=== PATIENT | female | born 1970 | race Caucasian/White ===

== ENCOUNTER 2019-08-17 12:08 | Outpatient (CLI) | payer OTHER, SELFPAY ==
[2019-08-17 13:10] LABS: Abs Immature Grans 0.01 k/cumm (0.0-0.09); Absolute Basophil Count 0.01 k/cumm (0.0-0.2); Absolute Eosinophil Count 0.08 k/cumm (0.0-0.7); Absolute Lymphocyte Count 1.83 k/cumm (1.2-3.4); Absolute Monocyte Count 0.52 k/cumm (0.11-0.7); Absolute Neutrophil Count 3.95 k/cumm (1.2-6.7); Basophils % 0.2; Eosinophils % 1.3; HCT 35.8 % (36.0-46.0); HGB 11.7 g/dL (12.0-15.5); Immature Grans % 0.2; Lymphocytes % 28.6; Mean Corp. HGB Concentration 32.7 g/dL (32.0-36.0); Mean Corpuscular Hemoglobin 35.8 pg (27.0-33.0); Mean Corpuscular Volume 109.5 fL (80-95); Mean Platelet Volume 8.3 fL (8.0-11.0); Monocytes % 8.1; Neutrophils % 61.6; Platelet Count 360 x1000/uL (130-400); RBC 3.27 m/cumm (4.00-5.20); RBC Distribution Width 13.9 % (11.7-14.6)
[2019-08-17 13:26] LABS: Diff Comment RBC Morph Reviewed; Macrocytosis 2+
[2019-08-17 13:34] LABS: ALT 24 U/L (14-59); AST 20 U/L (15-37); Albumin 3.9 g/dL (3.4-5.0); Alkaline Phosphatase 76 U/L (46-116); Anion Gap 9.9 mmol/L (3-11); BUN 21 mg/dL (7-18); Bilirubin, Total 0.1 mg/dL (0.2-1.0); CO2 28.1 mmol/L (21.0-32.0); Calcium 9.2 mg/dL (8.5-10.1); Chloride 105 mmol/L (98-107); Estimated GFR 52.36 (mL/min/1.73m2); Glucose 95 mg/dL (74-106); LDH 166 U/L (81-234); Potassium 4.1 mmol/L (3.5-5.1); Sodium 143 mmol/L (136-145); Total Protein 7.1 g/dL (6.4-8.2)
[2019-08-20 11:22] LABS: IgA 107 mg/dL (85-499); IgG 899 mg/dL (610-1,616); IgM 48 mg/dL (35-242)
== END 2019-08-17 12:28 ==
PROVIDERS: Visit Provider Internal Medicine Hematology & Oncology
DX: C84.78 Anaplastic large cell lymphoma, ALK-negative, lymph nodes of multiple sites (principal)
CPT/HCPCS: 36415; 80053; 82784; 83615; 85025

== ENCOUNTER 2019-09-05 09:24 | Outpatient (CLI) | payer OTHER, SELFPAY ==
[2019-09-05 09:51] LABS: Absolute Basophil Count 0.02 k/cumm (0.0-0.2); Absolute Eosinophil Count 0.16 k/cumm (0.0-0.7); Absolute Lymphocyte Count 2.65 k/cumm (1.2-3.4); Absolute Monocyte Count 0.83 k/cumm (0.11-0.7); Absolute Neutrophil Count 3.63 k/cumm (1.2-6.7); Basophils % 0.3; Eosinophils % 2.2; HCT 35.6 % (36.0-46.0); HGB 11.8 g/dL (12.0-15.5); Lymphocytes % 36.4; Mean Corp. HGB Concentration 33.1 g/dL (32.0-36.0); Mean Corpuscular Hemoglobin 35.6 pg (27.0-33.0); Mean Corpuscular Volume 107.6 fL (80-95); Mean Platelet Volume 8.5 fL (8.0-11.0); Monocytes % 11.4; Neutrophils % 49.7; Platelet Count 275 x1000/uL (130-400); RBC 3.31 m/cumm (4.00-5.20); RBC Distribution Width 13.3 % (11.7-14.6); White Blood Cell Count 7.29 k/cumm (4.4-10.8)
[2019-09-05 10:01] LABS: ALT 23 U/L (14-59); AST 20 U/L (15-37); Albumin 3.7 g/dL (3.4-5.0); Alkaline Phosphatase 72 U/L (46-116); Anion Gap 7.2 mmol/L (3-11); BUN 26 mg/dL (7-18); Bilirubin, Total 0.2 mg/dL (0.2-1.0); CO2 28.8 mmol/L (21.0-32.0); CREATININE 1.08 mg/dL (0.55-1.02); Chloride 106 mmol/L (98-107); Estimated GFR 53.49 (mL/min/1.73m2); Glucose 68 mg/dL (74-106); LDH 176 U/L (81-234); Sodium 142 mmol/L (136-145); Total Protein 7.1 g/dL (6.4-8.2)
[2019-09-05 10:21] LABS: Diff Comment Diff Reviewed
[2019-09-05 10:22] LABS: Macrocytosis 2+
[2019-09-06 12:22] LABS: IgA 96 mg/dL (85-499); IgG 884 mg/dL (610-1,616); IgM 41 mg/dL (35-242)
== END 2019-09-05 09:44 ==
PROVIDERS: Referring Provider Internal Medicine Hematology & Oncology; Visit Provider Internal Medicine Hematology & Oncology
DX: C84.78 Anaplastic large cell lymphoma, ALK-negative, lymph nodes of multiple sites (principal)
CPT/HCPCS: 36415; 80053; 82784; 83615; 85025

== ENCOUNTER 2019-09-13 14:02 | Outpatient (CLI) | payer OTHER, SELFPAY ==
[2019-09-13 15:16] LABS: Bilirubin Negative (Negative); Blood Negative (Negative); Clarity Clear (Clear); Glucose Negative (Negative); Ketones Negative (Negative); Leukocyte Esterase Negative (Negative); Nitrite Negative (Negative); Urobilinogen 0.2 EU/dL (Up TO 0.2); pH 5.5 (5-8)
== END 2019-09-13 14:22 ==
PROVIDERS: Referring Provider Internal Medicine Hematology & Oncology; Visit Provider Internal Medicine Hematology & Oncology
DX: C84.40 Peripheral T-cell lymphoma, not elsewhere classified, unspecified site (principal)
CPT/HCPCS: 81003

== ENCOUNTER 2019-10-01 15:07 | Outpatient (CLI) | payer OTHER, SELFPAY ==
[2019-10-01 15:32] LABS: Abs Immature Grans 0.01 k/cumm (0.0-0.09); Absolute Basophil Count 0.02 k/cumm (0.0-0.2); Absolute Eosinophil Count 0.08 k/cumm (0.0-0.7); Absolute Lymphocyte Count 2.81 k/cumm (1.2-3.4); Absolute Monocyte Count 0.64 k/cumm (0.11-0.7); Absolute Neutrophil Count 3.66 k/cumm (1.2-6.7); Basophils % 0.3; Eosinophils % 1.1; HCT 29.4 % (36.0-46.0); HGB 9.7 g/dL (12.0-15.5); Immature Grans % 0.1 %; Lymphocytes % 38.9; Mean Corpuscular Hemoglobin 33.7 pg (27.0-33.0); Mean Corpuscular Volume 102.1 fL (80-95); Mean Platelet Volume 8.4 fL (8.0-11.0); Monocytes % 8.9; Neutrophils % 50.7; Platelet Count 334 x1000/uL (130-400); RBC 2.88 m/cumm (4.00-5.20); RBC Distribution Width 13.3 % (11.7-14.6); White Blood Cell Count 7.22 k/cumm (4.4-10.8)
[2019-10-01 16:13] LABS: ALT 32 U/L (14-59); AST 18 U/L (15-37); Albumin 3.2 g/dL (3.4-5.0); Alkaline Phosphatase 71 U/L (46-116); Anion Gap 10.2 mmol/L (3-11); BUN 17 mg/dL (7-18); Bilirubin, Total 0.5 mg/dL (0.2-1.0); CO2 27.8 mmol/L (21.0-32.0); CREATININE 0.99 mg/dL (0.55-1.02); Calcium 8.6 mg/dL (8.5-10.1); Chloride 102 mmol/L (98-107); Estimated GFR 59.14 (mL/min/1.73m2); Glucose 89 mg/dL (74-106); Potassium 3.2 mmol/L (3.5-5.1); Sodium 140 mmol/L (136-145); Total Protein 7.2 g/dL (6.4-8.2)
[2019-10-01 17:32] LABS: LDH 183 U/L (81-234); Magnesium 1.9 mg/dL (1.8-2.4)
[2019-10-03 10:24] LABS: IgA 308 mg/dL (85-499); IgG 1426 mg/dL (610-1,616); IgM 63 mg/dL (35-242)
== END 2019-10-01 15:27 ==
PROVIDERS: Visit Provider Internal Medicine Hematology & Oncology
DX: C84.78 Anaplastic large cell lymphoma, ALK-negative, lymph nodes of multiple sites (principal)
CPT/HCPCS: 36415; 80053; 82784; 83615; 83735; 85025

== ENCOUNTER 2019-10-04 09:38 | Outpatient (CLI) | payer OTHER, SELFPAY | END 2019-10-04 09:58 | PROVIDERS: PCP Student in an Organized Health Care Education/Training Program; Visit Provider Internal Medicine Hematology & Oncology | DX: Z92.21 Personal history of antineoplastic chemotherapy (principal); C84.78 Anaplastic large cell lymphoma, ALK-negative, lymph nodes of multiple sites | CPT/HCPCS: 93005; 93010 ==

== ENCOUNTER 2019-11-07 02:42 | Outpatient (CLI) | payer OTHER, SELFPAY | END 2019-11-07 03:02 | PROVIDERS: Referring Provider Internal Medicine Hematology & Oncology; Visit Provider Internal Medicine Hematology & Oncology | DX: C84.78 Anaplastic large cell lymphoma, ALK-negative, lymph nodes of multiple sites (principal); Z13.6 Encounter for screening for cardiovascular disorders | CPT/HCPCS: 93005; 93010 ==

== ENCOUNTER 2019-11-07 14:27 | Outpatient (CLI) | payer OTHER, SELFPAY ==
[2019-11-07 14:53] LABS: Abs Immature Grans 0.01 k/cumm (0.0-0.09); Absolute Basophil Count 0.05 k/cumm (0.0-0.2); Absolute Eosinophil Count 0.16 k/cumm (0.0-0.7); Absolute Lymphocyte Count 2.49 k/cumm (1.2-3.4); Absolute Monocyte Count 0.55 k/cumm (0.11-0.7); Absolute Neutrophil Count 2.85 k/cumm (1.2-6.7); Basophils % 0.8; Eosinophils % 2.6; HCT 29.9 % (36.0-46.0); HGB 9.2 g/dL (12.0-15.5); Immature Grans % 0.2 %; Lymphocytes % 40.8; Mean Corp. HGB Concentration 30.8 g/dL (32.0-36.0); Mean Corpuscular Hemoglobin 31.9 pg (27.0-33.0); Mean Corpuscular Volume 103.8 fL (80-95); Neutrophils % 46.6; Platelet Count 395 x1000/uL (130-400); RBC 2.88 m/cumm (4.00-5.20); RBC Distribution Width 17.5 % (11.7-14.6); White Blood Cell Count 6.11 k/cumm (4.4-10.8)
[2019-11-07 15:12] LABS: Anisocytosis 2+; Basophilic Stippling Present; Diff Comment RBC Morph Reviewed; Hypochromasia 1+; Macrocytosis 2+; Polychromasia Present
[2019-11-07 15:14] LABS: ALT 17 U/L (14-59); AST 17 U/L (15-37); Albumin 3.3 g/dL (3.4-5.0); Alkaline Phosphatase 74 U/L (46-116); Anion Gap 8.9 mmol/L (3-11); BUN 21 mg/dL (7-18); Bilirubin, Total 0.3 mg/dL (0.2-1.0); CO2 28.1 mmol/L (21.0-32.0); CREATININE 1.06 mg/dL (0.55-1.02); Calcium 8.6 mg/dL (8.5-10.1); Chloride 106 mmol/L (98-107); Estimated GFR 54.65 (mL/min/1.73m2); Glucose 98 mg/dL (74-106); Potassium 3.7 mmol/L (3.5-5.1); Sodium 143 mmol/L (136-145); Total Protein 7.7 g/dL (6.4-8.2)
== END 2019-11-07 14:47 ==
PROVIDERS: Referring Provider Internal Medicine Hematology & Oncology; Visit Provider Internal Medicine Hematology & Oncology
DX: C84.78 Anaplastic large cell lymphoma, ALK-negative, lymph nodes of multiple sites (principal)
CPT/HCPCS: 36415; 80053; 86850; 86900; 86901; 85025

== ENCOUNTER 2019-11-28 11:43 | Outpatient (CLI) | payer OTHER, SELFPAY ==
[2019-11-28 12:17] LABS: Abs Immature Grans 0.01 k/cumm (0.0-0.09); Absolute Basophil Count 0.03 k/cumm (0.0-0.2); Absolute Eosinophil Count 0.14 k/cumm (0.0-0.7); Absolute Lymphocyte Count 1.82 k/cumm (1.2-3.4); Absolute Monocyte Count 0.62 k/cumm (0.11-0.7); Absolute Neutrophil Count 3.03 k/cumm (1.2-6.7); Basophils % 0.5; Eosinophils % 2.5; HCT 36.6 % (36.0-46.0); HGB 11.7 g/dL (12.0-15.5); Immature Grans % 0.2 %; Lymphocytes % 32.2; Mean Corpuscular Hemoglobin 33.5 pg (27.0-33.0); Mean Corpuscular Volume 104.9 fL (80-95); Mean Platelet Volume 8.1 fL (8.0-11.0); Neutrophils % 53.6; Platelet Count 376 x1000/uL (130-400); RBC 3.49 m/cumm (4.00-5.20); RBC Distribution Width 17.8 % (11.7-14.6); White Blood Cell Count 5.65 k/cumm (4.4-10.8)
[2019-11-28 12:39] LABS: ALT 25 U/L (14-59); AST 20 U/L (15-37); Albumin 3.8 g/dL (3.4-5.0); Alkaline Phosphatase 74 U/L (46-116); Anion Gap 5.9 mmol/L (3-11); BUN 22 mg/dL (7-18); Bilirubin, Total 0.4 mg/dL (0.2-1.0); CO2 29.1 mmol/L (21.0-32.0); CREATININE 0.98 mg/dL (0.55-1.02); Calcium 9.1 mg/dL (8.5-10.1); Chloride 104 mmol/L (98-107); Estimated GFR 59.83 (mL/min/1.73m2); Glucose 97 mg/dL (74-106); Magnesium 2.2 mg/dL (1.8-2.4); Sodium 139 mmol/L (136-145); Total Protein 7.9 g/dL (6.4-8.2)
== END 2019-11-28 12:03 ==
PROVIDERS: Visit Provider Internal Medicine Hematology & Oncology
DX: C84.78 Anaplastic large cell lymphoma, ALK-negative, lymph nodes of multiple sites (principal)
CPT/HCPCS: 36415; 80053; 83735; 85025

== ENCOUNTER 2019-12-03 02:05 | Outpatient (CLI) | payer OTHER, SELFPAY | END 2019-12-03 02:25 | PROVIDERS: Visit Provider Internal Medicine Hematology & Oncology | DX: C84.78 Anaplastic large cell lymphoma, ALK-negative, lymph nodes of multiple sites (principal); Z13.6 Encounter for screening for cardiovascular disorders; R94.31 Abnormal electrocardiogram [ECG] [EKG] | CPT/HCPCS: 93005; 93010 ==

== ENCOUNTER 2019-12-19 02:07 | Outpatient (CLI) | payer OTHER, SELFPAY ==
[2019-12-19 10:28] LABS: Absolute Basophil Count 0.03 k/cumm (0.0-0.2); Absolute Eosinophil Count 0.19 k/cumm (0.0-0.7); Absolute Monocyte Count 0.57 k/cumm (0.11-0.7); Absolute Neutrophil Count 2.92 k/cumm (1.2-6.7); Basophils % 0.5; Eosinophils % 3.4; HCT 37.7 % (36.0-46.0); HGB 12.2 g/dL (12.0-15.5); Lymphocytes % 32.7; Mean Corp. HGB Concentration 32.4 g/dL (32.0-36.0); Mean Corpuscular Hemoglobin 34.2 pg (27.0-33.0); Mean Corpuscular Volume 105.6 fL (80-95); Mean Platelet Volume 8.1 fL (8.0-11.0); Monocytes % 10.3; Neutrophils % 53.1; Platelet Count 297 x1000/uL (130-400); RBC 3.57 m/cumm (4.00-5.20); RBC Distribution Width 16.5 % (11.7-14.6); White Blood Cell Count 5.51 k/cumm (4.4-10.8)
[2019-12-19 10:38] LABS: ALT 27 U/L (14-59); AST 19 U/L (15-37); Albumin 3.5 g/dL (3.4-5.0); Alkaline Phosphatase 79 U/L (46-116); Anion Gap 5.4 mmol/L (3-11); BUN 19 mg/dL (7-18); Bilirubin, Total 0.2 mg/dL (0.2-1.0); CO2 29.6 mmol/L (21.0-32.0); Chloride 106 mmol/L (98-107); Estimated GFR 58.45 (mL/min/1.73m2); Glucose 57 mg/dL (74-106); LDH 164 U/L (81-234); Magnesium 1.9 mg/dL (1.8-2.4); Sodium 141 mmol/L (136-145); Total Protein 7.4 g/dL (6.4-8.2)
[2019-12-20 10:55] LABS: IgA 224 mg/dL (85-499); IgG 1248 mg/dL (610-1,616); IgM 91 mg/dL (35-242)
== END 2019-12-19 02:27 ==
PROVIDERS: Visit Provider Internal Medicine Hematology & Oncology
DX: C84.78 Anaplastic large cell lymphoma, ALK-negative, lymph nodes of multiple sites (principal); R94.31 Abnormal electrocardiogram [ECG] [EKG]; R00.1 Bradycardia, unspecified
CPT/HCPCS: 36415; 80053; 82784; 83615; 83735; 85025; 93005; 93010

== ENCOUNTER 2020-01-07 01:47 | Outpatient (CLI) | payer OTHER, SELFPAY ==
[2020-01-07] MEDS: Omnipaque 350 MG/ML 100 ML BTL IJ (09:55)
[2020-01-07] MEDS: Omnipaque 350 MG/ML 50 ML BTL PO (09:56)
[2020-01-07] MEDS: Normal Saline - Diluent 50 ML VIAL IV (09:56)
[2020-01-07] MEDS: Breeza Beverage 473 ML BTL PO (09:58)
--- NOTE | 2020-01-07 10:00 | DI.CT_ITS ---
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 COMPARISON: No exams were available for comparison FINDINGS: Neck CT: There is no evidence of adenopathy. The parotid, submandibular and thyroid glands are unre markable. There is no significant vascular stenosis or atherosclerotic plaque. The orbits are unrem arkable. There are degenerative disc changes at C5-6 and C6-7. Chest CT: A port is seen over the left upper chest. The heart size is normal. The pulmonary arterie s are well opacified with IV contrast and no emboli are seen. There is no infiltrate, pleural or per icardial effusion. There is mild apical scarring and paraseptal emphysematous changes. There is no evidence of axillary, hilar or mediastinal adenopathy. Surgical clips are seen in the left axilla. Abdomen and pelvic CT: The liver, spleen, gallbladder, pancreas, kidneys and adrenals are unremarkabl e. There is calcification in the aorta which is normal in diameter. There the uterus, bladder and s mall bowel are unremarkable. There is increased stool in the colon. There is a small lucency in the left ilium, of uncertain significance. There are degenerative disc changes at L5-S1. No evidence o f adenopathy in the abdomen or pelvis. IMPRESSION: No evidence adenopathy, mass or other acute abnormality in the neck, chest, abdomen or pelvis.
== END 2020-01-07 02:07 ==
PROVIDERS: Visit Provider Internal Medicine Hematology & Oncology
DX: C84.78 Anaplastic large cell lymphoma, ALK-negative, lymph nodes of multiple sites (principal); Z12.89 Encounter for screening for malignant neoplasm of other sites
CPT/HCPCS: 70491; 74177; 71260; J3490; Q9967

== ENCOUNTER 2020-01-07 02:30 | Outpatient (RCR) | payer OTHER, SELFPAY ==
[2020-01-07 08:35] LABS: Absolute Basophil Count 0.02 k/cumm (0.0-0.2); Absolute Eosinophil Count 0.23 k/cumm (0.0-0.7); Absolute Monocyte Count 0.66 k/cumm (0.11-0.7); Absolute Neutrophil Count 1.83 k/cumm (1.2-6.7); Basophils % 0.4; Eosinophils % 4.6; HCT 36.5 % (36.0-46.0); HGB 11.9 g/dL (12.0-15.5); Lymphocytes % 45.6; Mean Corp. HGB Concentration 32.6 g/dL (32.0-36.0); Mean Corpuscular Hemoglobin 34.5 pg (27.0-33.0); Mean Corpuscular Volume 105.8 fL (80-95); Mean Platelet Volume 8.6 fL (8.0-11.0); Monocytes % 13.1; Neutrophils % 36.3; Platelet Count 293 x1000/uL (130-400); RBC 3.45 m/cumm (4.00-5.20); RBC Distribution Width 14.9 % (11.7-14.6); White Blood Cell Count 5.04 k/cumm (4.4-10.8)
[2020-01-07] MEDS: Normal Saline Flush 10 ML SYR IVP (08:37)
[2020-01-07] MEDS: Heparin 500 UNITS/5 ML SYRINGE IV (08:38)
[2020-01-07 08:52] LABS: ALT 30 U/L (14-59); AST 21 U/L (15-37); Albumin 3.7 g/dL (3.4-5.0); Alkaline Phosphatase 78 U/L (46-116); Anion Gap 5.8 mmol/L (3-11); BUN 19 mg/dL (7-18); Bilirubin, Total 0.3 mg/dL (0.2-1.0); CO2 29.2 mmol/L (21.0-32.0); CREATININE 1.09 mg/dL (0.55-1.02); Calcium 8.9 mg/dL (8.5-10.1); Chloride 106 mmol/L (98-107); Estimated GFR 52.92 (mL/min/1.73m2); Glucose 95 mg/dL (74-106); LDH 165 U/L (81-234); Potassium 4.1 mmol/L (3.5-5.1); Sodium 141 mmol/L (136-145); Total Protein 7.5 g/dL (6.4-8.2)
[2020-01-09 13:23] LABS: CMV DNA Detect/Quant, P Undetected IU/mL (Undetected)
[2020-01-10 11:29] LABS: IgA 209 mg/dL (85-499); IgG 1138 mg/dL (610-1,616); IgM 86 mg/dL (35-242)
== END 2020-01-24 23:59 | disposition home or self-care (01) ==
LOC: INF 02:30
PROVIDERS: Visit Provider Internal Medicine Hematology & Oncology
DX: C84.78 Anaplastic large cell lymphoma, ALK-negative, lymph nodes of multiple sites (principal); Z45.2 Encounter for adjustment and management of vascular access device
CPT/HCPCS: 36591; 80053; 82784; 83615; 85025; 87497

== ENCOUNTER 2020-01-07 02:47 | Outpatient (CLI) | payer OTHER, SELFPAY | END 2020-01-07 03:07 | PROVIDERS: Referring Provider Internal Medicine Hematology & Oncology; Visit Provider Internal Medicine Hematology & Oncology | DX: C84.78 Anaplastic large cell lymphoma, ALK-negative, lymph nodes of multiple sites (principal); Z92.21 Personal history of antineoplastic chemotherapy; R94.31 Abnormal electrocardiogram [ECG] [EKG]; I25.2 Old myocardial infarction | CPT/HCPCS: 93005; 93010 ==

== ENCOUNTER → 2020-02-04 02:23 | Outpatient (CLI) | payer OTHER, SELFPAY | PROVIDERS: Visit Provider Internal Medicine Hematology & Oncology | DX: C84.40 Peripheral T-cell lymphoma, not elsewhere classified, unspecified site (principal); R94.31 Abnormal electrocardiogram [ECG] [EKG]; I25.2 Old myocardial infarction | CPT/HCPCS: 93005; 93010 ==

== ENCOUNTER 2020-02-20 01:46 | Outpatient (RCR) | payer OTHER, SELFPAY ==
[2020-02-04 13:15] LABS: Absolute Basophil Count 0.05 k/cumm (0.0-0.2); Absolute Lymphocyte Count 2.33 k/cumm (1.2-3.4); Absolute Monocyte Count 0.42 k/cumm (0.11-0.7); Absolute Neutrophil Count 2.83 k/cumm (1.2-6.7); Basophils % 0.9; Eosinophils % 1.7; HCT 35.8 % (36.0-46.0); HGB 12.3 g/dL (12.0-15.5); Lymphocytes % 40.7; Mean Corp. HGB Concentration 34.4 g/dL (32.0-36.0); Mean Corpuscular Hemoglobin 35.7 pg (27.0-33.0); Mean Corpuscular Volume 103.8 fL (80-95); Mean Platelet Volume 8.4 fL (8.0-11.0); Monocytes % 7.3; Neutrophils % 49.4; Platelet Count 302 x1000/uL (130-400); RBC 3.45 m/cumm (4.00-5.20); RBC Distribution Width 13.8 % (11.7-14.6); White Blood Cell Count 5.73 k/cumm (4.4-10.8)
[2020-02-04] MEDS: Normal Saline Flush 10 ML SYR IVP (13:23)
[2020-02-04 13:30] LABS: ALT 37 U/L (14-59); AST 24 U/L (15-37); Albumin 3.7 g/dL (3.4-5.0); Alkaline Phosphatase 73 U/L (46-116); Anion Gap 6.5 mmol/L (3-11); BUN 21 mg/dL (7-18); Bilirubin, Total 0.2 mg/dL (0.2-1.0); CO2 26.5 mmol/L (21.0-32.0); Chloride 102 mmol/L (98-107); Estimated GFR 58.45 (mL/min/1.73m2); Glucose 125 mg/dL (74-106); LDH 165 U/L (81-234); Potassium 4.3 mmol/L (3.5-5.1); Sodium 135 mmol/L (136-145); Total Protein 7.3 g/dL (6.4-8.2)
[2020-02-04 13:45] LABS: Calcium 9.2 mg/dL (8.5-10.1)
== END 2020-02-24 23:59 | disposition home or self-care (01) ==
LOC: INF 01:46
PROVIDERS: Visit Provider Internal Medicine Hematology & Oncology
DX: C84.78 Anaplastic large cell lymphoma, ALK-negative, lymph nodes of multiple sites (principal); Z45.2 Encounter for adjustment and management of vascular access device
CPT/HCPCS: 36415; 36591; 80053; 96523; 83615; 85025

== ENCOUNTER 2020-02-20 02:58 | Outpatient (CLI) | payer OTHER, SELFPAY ==
[2020-02-20 12:28] LABS: Absolute Basophil Count 0.02 k/cumm (0.0-0.2); Absolute Eosinophil Count 0.18 k/cumm (0.0-0.7); Absolute Monocyte Count 0.47 k/cumm (0.11-0.7); Absolute Neutrophil Count 3.37 k/cumm (1.2-6.7); Basophils % 0.3; Eosinophils % 2.8; HCT 36.8 % (36.0-46.0); HGB 12.4 g/dL (12.0-15.5); Lymphocytes % 38.2; Mean Corp. HGB Concentration 33.7 g/dL (32.0-36.0); Mean Corpuscular Hemoglobin 35.3 pg (27.0-33.0); Mean Corpuscular Volume 104.8 fL (80-95); Mean Platelet Volume 8.1 fL (8.0-11.0); Monocytes % 7.2; Neutrophils % 51.5; Platelet Count 286 x1000/uL (130-400); RBC 3.51 m/cumm (4.00-5.20); RBC Distribution Width 14.1 % (11.7-14.6); White Blood Cell Count 6.54 k/cumm (4.4-10.8)
[2020-02-20 12:40] LABS: ALT 31 U/L (14-59); AST 19 U/L (15-37); Albumin 3.7 g/dL (3.4-5.0); Alkaline Phosphatase 77 U/L (46-116); Anion Gap 5.8 mmol/L (3-11); BUN 27 mg/dL (7-18); Bilirubin, Total 0.3 mg/dL (0.2-1.0); CO2 29.2 mmol/L (21.0-32.0); CREATININE 1.04 mg/dL (0.55-1.02); Calcium 8.9 mg/dL (8.5-10.1); Chloride 104 mmol/L (98-107); Estimated GFR 55.65 (mL/min/1.73m2); Glucose 92 mg/dL (74-106); LDH 176 U/L (81-234); Magnesium 2.1 mg/dL (1.8-2.4); Potassium 4.2 mmol/L (3.5-5.1); Sodium 139 mmol/L (136-145); Total Protein 7.5 g/dL (6.4-8.2)
[2020-02-21 09:16] LABS: IgA 194 mg/dL (85-499); IgG 1127 mg/dL (610-1,616); IgM 73 mg/dL (35-242)
[2020-02-22 19:07] LABS: CMV DNA Detect/Quant, P Undetected IU/mL (Undetected)
== END 2020-02-20 03:18 ==
PROVIDERS: Visit Provider Internal Medicine Hematology & Oncology
DX: C84.78 Anaplastic large cell lymphoma, ALK-negative, lymph nodes of multiple sites (principal); R94.31 Abnormal electrocardiogram [ECG] [EKG]; I25.2 Old myocardial infarction; C84.40 Peripheral T-cell lymphoma, not elsewhere classified, unspecified site
CPT/HCPCS: 36415; 80053; 82784; 83615; 83735; 85025; 87497; 93005; 93010

== ENCOUNTER 2020-03-13 05:08 | Outpatient (CLI) | payer OTHER, SELFPAY | END 2020-03-13 05:28 | PROVIDERS: Visit Provider Internal Medicine Hematology & Oncology | DX: R94.31 Abnormal electrocardiogram [ECG] [EKG] (principal); C84.78 Anaplastic large cell lymphoma, ALK-negative, lymph nodes of multiple sites | CPT/HCPCS: 93005; 93010 ==

== ENCOUNTER 2020-03-13 09:16 | Outpatient (RCR) | payer OTHER, SELFPAY ==
[2020-03-13 10:09] LABS: Abs Immature Grans 0.01 k/cumm (0.0-0.09); Absolute Basophil Count 0.03 k/cumm (0.0-0.2); Absolute Eosinophil Count 0.19 k/cumm (0.0-0.7); Absolute Lymphocyte Count 2.19 k/cumm (1.2-3.4); Absolute Monocyte Count 0.83 k/cumm (0.11-0.7); Absolute Neutrophil Count 6.84 k/cumm (1.2-6.7); Basophils % 0.3; Eosinophils % 1.9; HCT 35.5 % (36.0-46.0); HGB 12.1 g/dL (12.0-15.5); Immature Grans % 0.1 %; Lymphocytes % 21.7; Mean Corp. HGB Concentration 34.1 g/dL (32.0-36.0); Mean Corpuscular Volume 105.7 fL (80-95); Mean Platelet Volume 8.1 fL (8.0-11.0); Monocytes % 8.2; Neutrophils % 67.8; Platelet Count 309 x1000/uL (130-400); RBC 3.36 m/cumm (4.00-5.20); White Blood Cell Count 10.09 k/cumm (4.4-10.8)
[2020-03-13 10:27] LABS: ALT 27 U/L (14-59); AST 23 U/L (15-37); Albumin 3.9 g/dL (3.4-5.0); Alkaline Phosphatase 87 U/L (46-116); Anion Gap 8.1 mmol/L (3-11); BUN 24 mg/dL (7-18); Bilirubin, Total 0.4 mg/dL (0.2-1.0); CO2 26.9 mmol/L (21.0-32.0); Calcium 8.9 mg/dL (8.5-10.1); Chloride 102 mmol/L (98-107); Estimated GFR 58.22 (mL/min/1.73m2); Glucose 103 mg/dL (74-106); LDH 188 U/L (81-234); Potassium 4.2 mmol/L (3.5-5.1); Sodium 137 mmol/L (136-145); Total Protein 7.5 g/dL (6.4-8.2)
[2020-03-13 10:30] LABS: Anisocytosis 1+; Diff Comment RBC Morph Reviewed; Macrocytosis 1+
[2020-03-13] MEDS: Normal Saline Flush 10 ML SYR IVP (10:39)
[2020-03-13] MEDS: Heparin 500 UNITS/5 ML SYRINGE IVP (10:39)
== END 2020-03-25 23:59 | disposition home or self-care (01) ==
LOC: INF 09:16
PROVIDERS: Visit Provider Internal Medicine Hematology & Oncology
DX: C84.78 Anaplastic large cell lymphoma, ALK-negative, lymph nodes of multiple sites (principal); Z45.2 Encounter for adjustment and management of vascular access device
CPT/HCPCS: 36591; 80053; 83615; 85025

== ENCOUNTER 2020-04-02 01:56 | Outpatient (CLI) | payer OTHER, SELFPAY ==
--- NOTE | 2020-04-02 08:00 | DI.MAMMO_ITS ---
EXAM: MAMMO SCREENING CLINICAL HISTORY: screening, Z12.39 TECHNIQUE: Mammograms were interpreted according to the usual protocol including computer analysis w [employer] CAD system, tomosynthesis and C-view imaging. COMPARISON: FINDINGS: The breasts are heterogeneously dense. No dominant mass or clumped microcalcification is identified either breast. Current examination is compared with previous examinations including January 2017 and the re is question of increased prominence of a medial retroareolar area nodularity seen in the right nichole ast in comparison with prior studies. No other significant change seen. Additional mammographic vie ws of the right breast recommended to include CC spot compression view. IMPRESSION: Additional mammographic views of the right breast requested as described above. Ultrasound should pr obably be obtained as well. BI-RADS Category 0 - Assessment Incomplete: Need additional imaging evaluation Breast Density - Category C - Heterogeneously dense
== END 2020-04-02 02:16 ==
PROVIDERS: PCP Nurse Practitioner Adult Health; Visit Provider Nurse Practitioner Adult Health
DX: Z12.31 Encounter for screening mammogram for malignant neoplasm of breast (principal); R92.8 Other abnormal and inconclusive findings on diagnostic imaging of breast
CPT/HCPCS: 77063; 77067

== ENCOUNTER → 2020-04-02 12:14 | Outpatient (CLI) | payer OTHER, SELFPAY ==
--- NOTE | 2020-04-02 12:15 | RT.EKG_ITS ---
APPROVED REPORT Exam: Resting ECG Patient Location: O HR:54 bpm ECG Measurements Heart Rate 54 AXIS NV 211 P 65 QRSd 95 QRS -64 QT 399 T 29 QTc 378 <Conclusion> Slow sinus arrhythmia...V-rate 45- 63, mean< 60 Prolonged NV interval...NV >210, V-rate 50- 90 Left anterior fascicular block...axis(240,-40), init forces inf Anterior infarct, old...Q >40mS, abnormal ST-T, V2-V5
== END ==
PROVIDERS: PCP Nurse Practitioner Adult Health; Visit Provider Nurse Practitioner Adult Health
DX: C84.78 Anaplastic large cell lymphoma, ALK-negative, lymph nodes of multiple sites (principal); R94.31 Abnormal electrocardiogram [ECG] [EKG]; I25.2 Old myocardial infarction
CPT/HCPCS: 93005; 93010

== ENCOUNTER 2020-04-23 02:40 | Outpatient (RCR) | payer OTHER, SELFPAY ==
[2020-04-02] MEDS: Heparin 500 UNITS/5 ML SYRINGE IV (12:10)
[2020-04-02] MEDS: Normal Saline Flush 10 ML SYR IVP (12:10)
[2020-04-02 12:15] LABS: Abs Immature Grans 0.01 k/cumm (0.0-0.09); Absolute Basophil Count 0.02 k/cumm (0.0-0.2); Absolute Eosinophil Count 0.18 k/cumm (0.0-0.7); Absolute Lymphocyte Count 1.82 k/cumm (1.2-3.4); Absolute Monocyte Count 0.66 k/cumm (0.11-0.7); Absolute Neutrophil Count 5.08 k/cumm (1.2-6.7); Basophils % 0.3; Eosinophils % 2.3; HCT 36.9 % (36.0-46.0); HGB 12.2 g/dL (12.0-15.5); Immature Grans % 0.1 %; Lymphocytes % 23.4; Mean Corp. HGB Concentration 33.1 g/dL (32.0-36.0); Mean Corpuscular Hemoglobin 35.3 pg (27.0-33.0); Mean Corpuscular Volume 106.6 fL (80-95); Mean Platelet Volume 8.2 fL (8.0-11.0); Monocytes % 8.5; Neutrophils % 65.4; Platelet Count 315 x1000/uL (130-400); RBC 3.46 m/cumm (4.00-5.20); RBC Distribution Width 13.2 % (11.7-14.6); White Blood Cell Count 7.77 k/cumm (4.4-10.8)
[2020-04-02 12:30] LABS: Anisocytosis 1+; Diff Comment RBC Morph Reviewed; Macrocytosis 2+
[2020-04-02 12:33] LABS: ALT 24 U/L (14-59); AST 19 U/L (15-37); Albumin 3.7 g/dL (3.4-5.0); Alkaline Phosphatase 90 U/L (46-116); Anion Gap 8.3 mmol/L (3-11); BUN 24 mg/dL (7-18); Bilirubin, Total 0.3 mg/dL (0.2-1.0); CO2 25.7 mmol/L (21.0-32.0); CREATININE 0.91 mg/dL (0.55-1.02); Calcium 8.6 mg/dL (8.5-10.1); Chloride 104 mmol/L (98-107); Glucose 78 mg/dL (74-106); LDH 161 U/L (81-234); Potassium 4.6 mmol/L (3.5-5.1); Sodium 138 mmol/L (136-145); Total Protein 7.3 g/dL (6.4-8.2)
[2020-04-23] MEDS: Normal Saline Flush 10 ML SYR IVP (09:39)
[2020-04-23 09:40] LABS: Abs Immature Grans 0.02 10^3/uL (0.0-0.06); Absolute Basophil Count 0.05 10^3/uL (0.0-0.2); Absolute Eosinophil Count 0.07 10^3/uL (0.0-0.7); Absolute Lymphocyte Count 2.72 10^3/uL (1.2-3.4); Absolute Monocyte Count 0.68 10^3/uL (0.1-0.8); Absolute Neutrophil Count 4.04 10^3/uL (1.2-6.7); Basophils % 0.7; Eosinophils % 0.9; HCT 39.3 % (36.0-46.0); HGB 13.1 g/dL (11.2-15.7); Immature Grans % 0.3; Lymphocytes % 35.9; MCH 35.1 pg (27.0-33.0); MCHC 33.3 % (32.0-36.0); MCV 105.4 fL (80-95); MPV 8.7 fL (8.0-11.0); Neutrophils % 53.2; Platelet Count 358 10^3/uL (130-400); RBC 3.73 10^6/uL (3.93-5.22); RDW 12.3 % (11.7-14.6); RDW-SD 48.2 fL; WBC 7.58 10^3/uL (4.4-10.8)
[2020-04-23] MEDS: Heparin 500 UNITS/5 ML SYRINGE IV (09:40)
[2020-04-23 09:57] LABS: ALT 22 U/L (14-59); Alkaline Phosphatase 81 U/L (46-116); Anion Gap 9.4 mmol/L (3-11); BUN 20 mg/dL (7-18); Bilirubin, Total 0.3 mg/dL (0.2-1.0); CO2 27.6 mmol/L (21.0-32.0); CREATININE 0.92 mg/dL (0.55-1.02); Calcium 9.7 mg/dL (8.5-10.1); Chloride 101 mmol/L (98-107); Glucose 133 mg/dL (74-106); LDH 168 U/L (81-234); Sodium 138 mmol/L (136-145); Total Protein 8.1 g/dL (6.4-8.2)
[2020-04-23 10:09] LABS: AST 16 U/L (15-37)
[2020-04-23 10:30] LABS: Anisocytosis 1+; Diff Comment RBC Morph Reviewed; Macrocytosis 1+
== END 2020-04-25 23:59 | disposition home or self-care (01) ==
LOC: INF 02:40
PROVIDERS: PCP Nurse Practitioner Adult Health; Visit Provider Internal Medicine Hematology & Oncology
DX: C84.78 Anaplastic large cell lymphoma, ALK-negative, lymph nodes of multiple sites (principal); Z45.2 Encounter for adjustment and management of vascular access device
CPT/HCPCS: 36591; 80053; 83615; 85025

== ENCOUNTER 2020-04-23 08:45 | Outpatient (CLI) | payer OTHER, SELFPAY ==
--- NOTE | 2020-04-23 08:45 | RT.EKG_ITS ---
APPROVED REPORT Exam: Resting ECG Patient Location: O HR:56 bpm ECG Measurements Heart Rate [address] 191 P 67 QRSd 107 QRS -57 QT 440 T 55 QTc 427 <Conclusion> Bradycardia with irregular rate...V-rate 49- 72, mean < 60 Left anterior fascicular block...axis(240,-40), init forces inf Anterior infarct, old...Q >40mS, abnormal ST-T, V2-V5
== END 2020-04-23 09:05 ==
PROVIDERS: PCP Nurse Practitioner Adult Health; Visit Provider Internal Medicine Hematology & Oncology
DX: R00.1 Bradycardia, unspecified (principal); R94.31 Abnormal electrocardiogram [ECG] [EKG]; I25.2 Old myocardial infarction; Z01.810 Encounter for preprocedural cardiovascular examination
CPT/HCPCS: 93005; 93010

== ENCOUNTER 2020-04-25 08:57 | Outpatient (CLI) | payer OTHER, SELFPAY ==
[2020-04-27 04:20] LABS: COVID-19 RT-PCR Result NEGATIVE (Negative)
== END 2020-04-25 09:17 ==
PROVIDERS: PCP Nurse Practitioner Adult Health; Visit Provider Nurse Practitioner Family
DX: Z11.59 Encounter for screening for other viral diseases (principal); Z01.818 Encounter for other preprocedural examination
CPT/HCPCS: U0003

== ENCOUNTER 2020-04-30 10:47 | Outpatient (REF) | payer OTHER, SELFPAY ==
--- NOTE | 2020-04-30 10:00 | PAPFT_PTH ---
PATIENT: Ava Mares LOC: [facility] U#:[id number] AGE/SX: 50/F ROOM: RE04/30/[address]: Saritha Wylie APRN : 1970 BED: DIS: 04/30/2020 SPEC #: [id number] RECD: 05/01/20 12:49 STATUS: FELY REAnahi #: [id number] CLARKE: 04/30/20 10:[address]: Saritha Wylie DEPT: ON LICENSE OF [facility] Cytology RECD BY: Xochitl Amato Tissues: 1 - CX/ENDOCX FOR PAP SMEARS Procedures: PAP THIN PREP/UVM Screening HPV DNA PROBE Comments: [id number]
== END 2020-04-30 11:07 ==
LOC: LBN 10:47
PROVIDERS: PCP Nurse Practitioner Adult Health; Referring Provider Nurse Practitioner Adult Health; Visit Provider Nurse Practitioner Adult Health
DX: Z12.4 Encounter for screening for malignant neoplasm of cervix (principal); Z11.51 Encounter for screening for human papillomavirus (HPV); R87.612 Low grade squamous intraepithelial lesion on cytologic smear of cervix (LGSIL)
CPT/HCPCS: 88142; 87624

== ENCOUNTER 2020-05-07 02:08 | Outpatient (CLI) | payer OTHER, SELFPAY ==
--- NOTE | 2020-05-07 | DI.US_ITS ---
EXAM: MG MAMMO SCREEN CALL BACK UNI and U/S breast RT limited CLINICAL HISTORY: F/U MAMMO, ? INCREASED PROMINENCE MEDIAL RETROAREOLAR NODULARITY RT. TECHNIQUE: Craniocaudal and mediolateral oblique Full Field Digital Mammography views of the right b reast with Computer Aided Diagnosis followed by Tomosynthesis and right breast ultrasound. COMPARISON: Priors available for comparison. FINDINGS: Mammography/Tomosynthesis: Masses/Architectural Distortion: None seen. Microcalcifictions: No suspicious pleomorphic-type are seen. Skin Thickening/Nipple Retraction: None. Right breast US: Echotexture: Normal appearance of the glandular tissue. Shadowing: No suspicious foci. Cyst: None. Solid lesions: None seen. Ductal dilation: None. IMPRESSION: 1. No evidence of malignancy is noted. 2. Unless there is more urgent need, follow-up screening mammography is recommended, as per [employer] guidelines. 3. The findings were discussed with the patient on the date of the examination. BI-RADS Category 1 - Negative Breast Density - Category C - Heterogeneously dense The mammogram demonstrates the patient's breast tissue is dense. Dense breast tissue is very common a nd is not abnormal but dense breast tissue can make it harder to find cancer on a mammogram. Also, de nse breast tissue may increase their breast cancer risk. This information about the result of the [facility] mogram report was provided to the patient to raise their awareness. Use this report when you speak wi th the patient about their risks for breast cancer, which includes their family history. At that time , you may recommend for more screening tests (Ultrasound or MRI) as they might be useful based on the ir risk. A negative radiographic report should not delay biopsy if a dominant or clinically suspicious mass is present. Up to ten percent of cancers are not identified on mammography. A negative report may reinforce clinical impression. Adenosis and dense breasts may obscure an underlying neoplasm. False positive reports average 6 to 10%. Patient will receive a letter notifying them of these results.
== END 2020-05-07 02:28 ==
PROVIDERS: PCP Nurse Practitioner Adult Health; Visit Provider Nurse Practitioner Adult Health
DX: Z12.39 Encounter for other screening for malignant neoplasm of breast (principal); R92.8 Other abnormal and inconclusive findings on diagnostic imaging of breast; R92.2 Inconclusive mammogram
CPT/HCPCS: 76642; 77063; 77067

== ENCOUNTER 2020-05-14 03:08 | Outpatient (CLI) | payer OTHER, SELFPAY ==
--- NOTE | 2020-05-14 09:15 | RT.EKG_ITS ---
APPROVED REPORT Exam: Resting ECG Patient Location: O HR:54 bpm ECG Measurements Heart Rate 54 AXIS ID 188 P 59 QRSd 104 QRS -64 QT 444 T 44 QTc 421 Conclusion Sinus bradycardia...rate< 60 Left anterior fascicular block...axis(240,-40), init forces inf Anterior infarct, old...Q >40mS, abnormal ST-T, V2-V5
== END 2020-05-14 03:28 ==
PROVIDERS: PCP Nurse Practitioner Adult Health; Visit Provider Internal Medicine Hematology & Oncology
DX: Z79.899 Other long term (current) drug therapy (principal); C84.40 Peripheral T-cell lymphoma, not elsewhere classified, unspecified site
CPT/HCPCS: 93005; 93010

== ENCOUNTER 2020-05-16 09:48 | Day surgery (SDC) | payer OTHER, SELFPAY ==
[2020-05-16 09:53] VITALS: BP 116/71; PULSE 71; RESP 22; TEMP 36.4; O2SAT 100
[2020-05-16] MEDS: Lactated Ringers 1,000 ML 80 ML IV (10:46)
[2020-05-16] MEDS: Normal Saline-STERILE FIELD 0.9% 10 ML SYR (10:47)
[2020-05-16] MEDS: Normal Saline Flush 10 ML SYR IV ×2 (10:47→13:09)
--- NOTE | 2020-05-16 11:37 | W.PM.DSUDISC ---
Discharge Plan Disposition Patient Disposition: HOME Condition: Good Discharge Details Reason For Visit: Colonoscopy Attending Provider: Kitty Beltran Primary Care Provider: Saritha Wylie Home Meds and New Rx's Prescriptions: Continued multivitamin Tablet 1 tab PO DAILY RF: 0 magnesium oxide 400 mg magnesium tablet 400 mg PO DAILY RF: 0 ascorbate calcium (vitamin C) 500 mg tablet 500 mg PO DAILY RF: 0 prochlorperazine maleate [Compazine] 10 mg tablet 10 mg PO Q6H PRNRF: 0 ondansetron HCl 8 mg tablet 8 mg PO Q8H RF: 0 loperamide [Imodium A-D] 2 mg tablet 2 mg PO QID PRNRF: 0 Discharge Instructions Additional Instructions: Findings: Your colonoscopy showed diverticulosis Follow up: Plan for routine screening in 10 years or sooner if symptoms arise. Please call if you develop: fevers >101.5 Nausea or Vomiting Abdominal pain that is not transient DAY SURGERY UNIT POST COLONOSCOPY INSTRUCTIONS 1. Because there will be medication in your system for the next 24 hours, you may feel a little sleepy. Your coordination will be affected. Therefore: a. Do not drive or operate dangerous equipment for 24 hours. b. Do not drink alcohol beverages for 24 hours (not even beer). c. Plan to go home and rest for the day. 2. Generally there are no restrictions on your activity after a day or so has gone by, but you may feel a bit fatigued for a few days. 3 After you arrive home you may have a light meal and return to a normal diet as you can tolerate it without feeling sick to your stomach. 4. After surgery, you may feel pain or discomfort. This should be only transient, but if it persists please contact your doctor. 5. If there are any questions regarding the findings of your procedure, please feel free to contact your doctor. 6. If you are unable to contact your doctor with a problem, contact the hospital at [phone]. 7. Continue all your regular medications unless directed otherwise. I understand the above instructions and have no questions. Signature of Patient or Responsible Adult Escort Date/Time Name of Responsible Adult Escort Signature of Nurse Date/Time Activity:: Activity as Tolerated Diet:: As Tolerated Discharge Orders Discharge Orders: Discharge Order (Routine); Ordered 05/16/20 Ordered By: Kitty Beltran DS: Diagnosis Discharge Diagnosis (1) Diverticulosis: Status: Acute
--- NOTE | 2020-05-16 11:38 | W.COLOREPORT ---
Date of service: 05/16/20 Time of Service: 12:28 Colonoscopy Report Date of procedure: 05/16/20 Pre-op diagnosis general: Screening Post-op diagnosis procedure note: other (Diverticulosis) Procedure: Colonoscopy Surgeon: Kitty Beltran Anesthesia proc note operative: MAC Indications: This 50 year old patient presents for her first screening colonoscopy. She has no symptoms. Grandmother with colon cancer. Procedure Description: The patient was placed in the left Cisneros position. Propofol was titrated to sedation. Digital rectal examination revealed no abnormalities. The scope was advanced to the cecum without difficulty. The ileocecal valve and appendiceal orifice were clearly identified. The prep was good. The scope was slowly withdrawn over the course of greater than 6 minutes with no abnormalities seen in the ascending, transverse, descending, sigmoid colon or rectum including on retroflexed view. A mild amount of sigmoid diverticulosis was noted. The patient tolerated the procedure well and was stable to recovery. Plan for routine screening colonoscopy in 10 years or sooner if symptoms indicate.
[2020-05-16 12:54] VITALS: BP 108/69; PULSE 65; RESP 18; TEMP 36.4; O2SAT 100
[2020-05-16] MEDS: Heparin 500 UNITS/5 ML SYRINGE IVP (13:09)
== END 2020-05-16 13:22 | disposition home or self-care (01) ==
PROVIDERS: PCP Nurse Practitioner Adult Health; Referring Provider Nurse Practitioner Adult Health; Visit Provider Surgery
PROC: 0DJD8ZZ Inspection of Lower Intestinal Tract, Via Natural or Artificial Opening Endoscopic (ICD-10-PCS; CPT 45378; principal; 2020-05-16 11:45)
DX: Z12.11 Encounter for screening for malignant neoplasm of colon (principal); Z80.0 Family history of malignant neoplasm of digestive organs; K57.30 Diverticulosis of large intestine without perforation or abscess without bleeding
CPT/HCPCS: 45378; J2001

== ENCOUNTER 2020-05-22 03:55 | Outpatient (RCR) | payer OTHER, SELFPAY ==
[2020-05-14 09:52] LABS: Abs Immature Grans 0.02 10^3/uL (0.0-0.06); Absolute Basophil Count 0.04 10^3/uL (0.0-0.2); Absolute Eosinophil Count 0.19 10^3/uL (0.0-0.7); Absolute Lymphocyte Count 2.24 10^3/uL (1.2-3.4); Absolute Monocyte Count 0.64 10^3/uL (0.1-0.8); Absolute Neutrophil Count 3.45 10^3/uL (1.2-6.7); Basophils % 0.6; Eosinophils % 2.9; HCT 36.5 % (36.0-46.0); HGB 12.4 g/dL (11.2-15.7); Immature Grans % 0.3; MCH 34.7 pg (27.0-33.0); MCV 102.2 fL (80-95); MPV 8.5 fL (8.0-11.0); Monocytes % 9.7; Neutrophils % 52.5; Nucleated RBC 0 %; Platelet Count 306 10^3/uL (130-400); RBC 3.57 10^6/uL (3.93-5.22); RDW 12.3 % (11.7-14.6); WBC 6.58 10^3/uL (4.4-10.8)
[2020-05-14 10:06] LABS: ALT 21 U/L (14-59); AST 17 U/L (15-37); Albumin 3.6 g/dL (3.4-5.0); Alkaline Phosphatase 75 U/L (46-116); Anion Gap 5.5 mmol/L (3-11); BUN 21 mg/dL (7-18); Bilirubin, Total 0.2 mg/dL (0.2-1.0); CO2 31.5 mmol/L (21.0-32.0); CREATININE 0.98 mg/dL (0.55-1.02); Chloride 104 mmol/L (98-107); Glucose 86 mg/dL (74-106); LDH 149 U/L (81-234); Sodium 141 mmol/L (136-145); Total Protein 7.2 g/dL (6.4-8.2)
[2020-05-14] MEDS: Normal Saline Flush 10 ML SYR IVP (10:38)
[2020-05-14] MEDS: Heparin 500 UNITS/5 ML SYRINGE IV (10:39)
[2020-05-15 09:06] LABS: IgA 183 mg/dL (85-499); IgG 930 mg/dL (610-1,616); IgM 49 mg/dL (35-242)
[2020-05-17 13:32] LABS: CMV DNA Detect/Quant, P Undetected IU/mL (Undetected)
== END 2020-05-26 23:59 | disposition home or self-care (01) ==
LOC: INF 03:55
PROVIDERS: PCP Nurse Practitioner Adult Health; Visit Provider Internal Medicine Hematology & Oncology
DX: C84.78 Anaplastic large cell lymphoma, ALK-negative, lymph nodes of multiple sites (principal); Z45.2 Encounter for adjustment and management of vascular access device
CPT/HCPCS: 36591; 80053; 82784; 83615; 85025; 87496; 87497

== ENCOUNTER 2020-06-04 02:56 | Outpatient (CLI) | payer OTHER, SELFPAY ==
--- NOTE | 2020-06-04 09:15 | RT.EKG_ITS ---
APPROVED REPORT Exam: Resting ECG Patient Location: O HR:59 bpm ECG Measurements Heart Rate 59 AXIS TX 191 P 55 QRSd 97 QRS -59 QT 423 T 47 QTc 420 Conclusion Sinus bradycardia...rate< 60 Left anterior fascicular block...axis(240,-40), init forces inf Anterior infarct, old...Q >40mS, abnormal ST-T, V2-V5
== END 2020-06-04 03:16 ==
PROVIDERS: PCP Nurse Practitioner Adult Health; Visit Provider Internal Medicine Hematology & Oncology
DX: C84.78 Anaplastic large cell lymphoma, ALK-negative, lymph nodes of multiple sites (principal); Z79.899 Other long term (current) drug therapy; R00.1 Bradycardia, unspecified; R94.31 Abnormal electrocardiogram [ECG] [EKG]
CPT/HCPCS: 93005; 93010

== ENCOUNTER 2020-06-25 03:43 | Outpatient (RCR) | payer OTHER, SELFPAY ==
[2020-06-04 09:41] LABS: Abs Immature Grans 0.01 10^3/uL (0.0-0.06); Absolute Basophil Count 0.04 10^3/uL (0.0-0.2); Absolute Eosinophil Count 0.19 10^3/uL (0.0-0.7); Absolute Lymphocyte Count 3.12 10^3/uL (1.2-3.4); Absolute Monocyte Count 0.68 10^3/uL (0.1-0.8); Absolute Neutrophil Count 2.27 10^3/uL (1.2-6.7); Basophils % 0.6; HGB 12.8 g/dL (11.2-15.7); Immature Grans % 0.2; Lymphocytes % 49.4; MCH 34.8 pg (27.0-33.0); MCHC 33.7 % (32.0-36.0); MCV 103.3 fL (80-95); MPV 8.5 fL (8.0-11.0); Monocytes % 10.8; Nucleated RBC 0 %; Platelet Count 297 10^3/uL (130-400); RBC 3.68 10^6/uL (3.93-5.22); RDW 12.9 % (11.7-14.6); RDW-SD 49.3 fL; WBC 6.31 10^3/uL (4.4-10.8)
[2020-06-04] MEDS: Heparin 500 UNITS/5 ML SYRINGE (09:44)
[2020-06-04] MEDS: Normal Saline Flush 10 ML SYR 30 ML IVP (09:45)
[2020-06-04 09:53] LABS: ALT 23 U/L (14-59); AST 18 U/L (15-37); Albumin 3.7 g/dL (3.4-5.0); Alkaline Phosphatase 80 U/L (46-116); Anion Gap 7.8 mmol/L (3-11); BUN 17 mg/dL (7-18); Bilirubin, Total 0.3 mg/dL (0.2-1.0); CO2 27.2 mmol/L (21.0-32.0); CREATININE 0.95 mg/dL (0.55-1.02); Calcium 9.1 mg/dL (8.5-10.1); Chloride 103 mmol/L (98-107); Glucose 108 mg/dL (74-106); LDH 161 U/L (81-234); Potassium 4.4 mmol/L (3.5-5.1); Sodium 138 mmol/L (136-145); Total Protein 7.4 g/dL (6.4-8.2)
[2020-06-25 13:25] LABS: Abs Immature Grans 0.01 10^3/uL (0.0-0.06); Absolute Basophil Count 0.05 10^3/uL (0.0-0.2); Absolute Eosinophil Count 0.11 10^3/uL (0.0-0.7); Absolute Lymphocyte Count 2.97 10^3/uL (1.2-3.4); Absolute Monocyte Count 0.68 10^3/uL (0.1-0.8); Absolute Neutrophil Count 2.56 10^3/uL (1.2-6.7); Basophils % 0.8; Eosinophils % 1.7; HCT 38.5 % (36.0-46.0); HGB 12.7 g/dL (11.2-15.7); Immature Grans % 0.2; Lymphocytes % 46.6; MCH 33.2 pg (27.0-33.0); MCV 100.8 fL (80-95); MPV 8.4 fL (8.0-11.0); Monocytes % 10.7; Nucleated RBC 0 %; Platelet Count 312 10^3/uL (130-400); RBC 3.82 10^6/uL (3.93-5.22); RDW 13.2 % (11.7-14.6); RDW-SD 49.1 fL; WBC 6.38 10^3/uL (4.4-10.8)
[2020-06-25 13:37] LABS: ALT 25 U/L (14-59); AST 21 U/L (15-37); Albumin 3.7 g/dL (3.4-5.0); Alkaline Phosphatase 80 U/L (46-116); Anion Gap 8.9 mmol/L (3-11); BUN 19 mg/dL (7-18); Bilirubin, Total 0.4 mg/dL (0.2-1.0); CO2 26.1 mmol/L (21.0-32.0); CREATININE 0.94 mg/dL (0.55-1.02); Calcium 9.2 mg/dL (8.5-10.1); Chloride 102 mmol/L (98-107); Glucose 126 mg/dL (74-106); LDH 166 U/L (81-234); Sodium 137 mmol/L (136-145); Total Protein 7.4 g/dL (6.4-8.2)
[2020-06-25] MEDS: Heparin 500 UNITS/5 ML SYRINGE IV (13:58)
[2020-06-25] MEDS: Normal Saline Flush 10 ML SYR 30 ML IVP (13:58)
[2020-06-26 09:07] LABS: IgA 190 mg/dL (85-499); IgG 1037 mg/dL (610-1,616); IgM 47 mg/dL (35-242)
[2020-06-28 15:40] LABS: CMV DNA Detect/Quant, P Undetected IU/mL (Undetected)
== END 2020-06-25 23:59 | disposition home or self-care (01) ==
LOC: INF 03:43
PROVIDERS: PCP Nurse Practitioner Adult Health; Visit Provider Internal Medicine Hematology & Oncology
DX: C84.78 Anaplastic large cell lymphoma, ALK-negative, lymph nodes of multiple sites (principal); Z45.2 Encounter for adjustment and management of vascular access device
CPT/HCPCS: 36591; 80053; 82784; 83615; 85025; 87497

== ENCOUNTER 2020-06-25 05:33 | Outpatient (CLI) | payer OTHER, SELFPAY ==
--- NOTE | 2020-06-25 13:15 | RT.EKG_ITS ---
APPROVED REPORT Exam: Resting ECG Patient Location: O HR:73 bpm ECG Measurements Heart Rate 73 AXIS DC 196 P 65 QRSd 100 QRS -63 QT 404 T 50 QTc 446 Conclusion Sinus rhythm...normal P axis, V-rate 60- 99 Probable left atrial enlargement...P >50mS, <-0.10mV V1 Left anterior fascicular block...axis(240,-40), init forces inf Left ventricular hypertrophy...multiple LVH criteria Anterior infarct, old...Q >40mS, abnormal ST-T, V2-V5
== END 2020-06-25 05:53 ==
PROVIDERS: PCP Nurse Practitioner Adult Health; Visit Provider Internal Medicine Hematology & Oncology
DX: C84.78 Anaplastic large cell lymphoma, ALK-negative, lymph nodes of multiple sites (principal); Z79.899 Other long term (current) drug therapy; R94.31 Abnormal electrocardiogram [ECG] [EKG]
CPT/HCPCS: 93005; 93010

== ENCOUNTER 2020-07-17 03:24 | Outpatient (RCR) | payer OTHER, SELFPAY | END 2020-07-26 23:59 | disposition home or self-care (01) | LOC: INF 03:24 | PROVIDERS: PCP Nurse Practitioner Adult Health; Visit Provider Internal Medicine Hematology & Oncology | DX: Z53.9 Procedure and treatment not carried out, unspecified reason (principal) ==

== ENCOUNTER 2020-08-26 09:18 | Outpatient (RCR) | payer OTHER, SELFPAY ==
[2020-08-26] MEDS: Heparin 500 UNITS/5 ML SYRINGE (13:20)
[2020-08-26] MEDS: Normal Saline Flush 10 ML SYR IVP (13:21)
[2020-08-26 13:29] LABS: Abs Immature Grans 0.01 10^3/uL (0.0-0.06); Absolute Basophil Count 0.03 10^3/uL (0.0-0.2); Absolute Eosinophil Count 0.19 10^3/uL (0.0-0.7); Absolute Lymphocyte Count 2.43 10^3/uL (1.2-3.4); Absolute Monocyte Count 0.63 10^3/uL (0.1-0.8); Absolute Neutrophil Count 3.64 10^3/uL (1.2-6.7); Basophils % 0.4; Eosinophils % 2.7; HCT 35.9 % (36.0-46.0); Immature Grans % 0.1; Lymphocytes % 35.1; MCH 34.1 pg (27.0-33.0); MCHC 33.4 % (32.0-36.0); MPV 8.3 fL (8.0-11.0); Monocytes % 9.1; Neutrophils % 52.6; Nucleated RBC 0 %; Platelet Count 312 10^3/uL (130-400); RBC 3.52 10^6/uL (3.93-5.22); RDW-SD 49.1 fL; WBC 6.93 10^3/uL (4.4-10.8)
[2020-08-26 13:44] LABS: ALT 22 U/L (14-59); AST 22 U/L (15-37); Albumin 3.6 g/dL (3.4-5.0); Alkaline Phosphatase 83 U/L (46-116); Anion Gap 7.1 mmol/L (3-11); BUN 17 mg/dL (7-18); Bilirubin, Total 0.3 mg/dL (0.2-1.0); CO2 26.9 mmol/L (21.0-32.0); CREATININE 0.95 mg/dL (0.55-1.02); Calcium 8.9 mg/dL (8.5-10.1); Chloride 103 mmol/L (98-107); Glucose 135 mg/dL (74-106); Potassium 3.7 mmol/L (3.5-5.1); Sodium 137 mmol/L (136-145); Total Protein 7.2 g/dL (6.4-8.2)
== END 2020-09-25 23:59 | disposition home or self-care (01) ==
LOC: INF 09:18
PROVIDERS: Internal Medicine Hematology & Oncology; PCP Nurse Practitioner Adult Health; Visit Provider Internal Medicine Hematology & Oncology
DX: C84.78 Anaplastic large cell lymphoma, ALK-negative, lymph nodes of multiple sites (principal); Z94.81 Bone marrow transplant status; Z45.2 Encounter for adjustment and management of vascular access device
CPT/HCPCS: 36591; 80053; 85025

== ENCOUNTER 2020-10-28 01:47 | Outpatient (RCR) | payer OTHER, SELFPAY ==
[2020-10-28 11:40] LABS: Abs Immature Grans 0.06 10^3/uL (0.0-0.06); Absolute Monocyte Count 0.84 10^3/uL (0.1-0.8); Basophils % 0.2; Eosinophils % 0.2; HCT 38.7 % (36.0-46.0); HGB 12.7 g/dL (11.2-15.7); Immature Grans % 0.5; Lymphocytes % 13.4; MCH 32.6 pg (27.0-33.0); MCHC 32.8 % (32.0-36.0); MCV 99.5 fL (80-95); MPV 8.6 fL (8.0-11.0); Monocytes % 6.3; Neutrophils % 79.4; Nucleated RBC 0 %; Platelet Count 328 10^3/uL (130-400); RBC 3.89 10^6/uL (3.93-5.22); RDW-SD 50.8 fL; WBC 13.32 10^3/uL (4.4-10.8)
[2020-10-28 11:45] LABS: Absolute Basophil Count 0.03 10^3/uL (0.0-0.2); Absolute Eosinophil Count 0.03 10^3/uL (0.0-0.7); Absolute Lymphocyte Count 1.78 10^3/uL (1.2-3.4); Absolute Neutrophil Count 10.58 10^3/uL (1.2-6.7)
[2020-10-28] MEDS: Heparin 500 UNITS/5 ML SYRINGE IV (11:46)
[2020-10-28] MEDS: Normal Saline Flush 10 ML SYR IVP (11:46)
[2020-10-28 11:53] LABS: ALT 24 U/L (14-59); AST 8 U/L (15-37); Alkaline Phosphatase 78 U/L (46-116); Anion Gap 8.6 mmol/L (3-11); BUN 24 mg/dL (7-18); Bilirubin, Total 0.3 mg/dL (0.2-1.0); CO2 28.4 mmol/L (21.0-32.0); CREATININE 1.1 mg/dL (0.55-1.02); Calcium 8.7 mg/dL (8.5-10.1); Chloride 104 mmol/L (98-107); Estimated GFR 52.16 (mL/min/1.73m2); Glucose 104 mg/dL (74-106); LDH 131 U/L (81-234); Sodium 141 mmol/L (136-145); Total Protein 6.3 g/dL (6.4-8.2)
== END 2020-11-23 23:59 | disposition home or self-care (01) ==
LOC: INF 01:47
PROVIDERS: Internal Medicine; PCP Nurse Practitioner Adult Health; Visit Provider Internal Medicine Hematology & Oncology
DX: C85.98 Non-Hodgkin lymphoma, unspecified, lymph nodes of multiple sites (principal); C84.78 Anaplastic large cell lymphoma, ALK-negative, lymph nodes of multiple sites; Z94.81 Bone marrow transplant status; Z45.2 Encounter for adjustment and management of vascular access device
CPT/HCPCS: 36591; 80053; 83615; 85025

== ENCOUNTER 2020-12-31 02:20 | Outpatient (RCR) | payer OTHER, SELFPAY ==
[2020-12-31] MEDS: Heparin 500 UNITS/5 ML SYRINGE IV (14:28)
[2020-12-31] MEDS: Normal Saline Flush 10 ML SYR IVP (14:28)
[2020-12-31 14:40] LABS: Abs Immature Grans 0.04 10^3/uL (0.0-0.06); Absolute Basophil Count 0.02 10^3/uL (0.0-0.2); Absolute Lymphocyte Count 1.37 10^3/uL (1.2-3.4); Absolute Monocyte Count 0.12 10^3/uL (0.1-0.8); Basophils % 0.3; HCT 38.3 % (36.0-46.0); HGB 12.5 g/dL (11.2-15.7); Immature Grans % 0.5; Lymphocytes % 18.1; MCH 32.5 pg (27.0-33.0); MCHC 32.6 % (32.0-36.0); MCV 99.5 fL (80-95); MPV 8.4 fL (8.0-11.0); Monocytes % 1.6; Neutrophils % 79.5; Nucleated RBC 0 %; Platelet Count 277 10^3/uL (130-400); RBC 3.85 10^6/uL (3.93-5.22); RDW 16.8 % (11.7-14.6); RDW-SD 61.1 fL; WBC 7.55 10^3/uL (4.4-10.8)
[2020-12-31 15:01] LABS: ALT 25 U/L (14-59); AST 13 U/L (15-37); Albumin 3.4 g/dL (3.4-5.0); Alkaline Phosphatase 70 U/L (46-116); Anion Gap 7.4 mmol/L (3-11); BUN 33 mg/dL (7-18); Bilirubin, Total 0.3 mg/dL (0.2-1.0); CO2 26.6 mmol/L (21.0-32.0); CREATININE 1.2 mg/dL (0.55-1.02); Calcium 8.7 mg/dL (8.5-10.1); Chloride 102 mmol/L (98-107); Estimated GFR 47.18 (mL/min/1.73m2); Glucose 150 mg/dL (74-106); Potassium 4.5 mmol/L (3.5-5.1); Sodium 136 mmol/L (136-145); Total Protein 6.7 g/dL (6.4-8.2)
== END 2021-01-23 23:59 | disposition home or self-care (01) ==
LOC: INF 02:20
PROVIDERS: PCP Nurse Practitioner Adult Health; Visit Provider Internal Medicine
DX: T86.09 Other complications of bone marrow transplant (principal); D89.810 Acute graft-versus-host disease
CPT/HCPCS: 36591; 80053; 85025

== ENCOUNTER 2021-01-13 02:14 | Outpatient (CLI) | payer OTHER, SELFPAY ==
[2021-01-14 11:17] LABS: COVID-19 RT-PCR UVMMC Result Negative (Negative)
== END 2021-01-13 02:15 | disposition home or self-care (01) ==
LOC: LBO 02:14
PROVIDERS: PCP Nurse Practitioner Adult Health; Visit Provider Nurse Practitioner Adult Health
DX: Z20.822 Contact with and (suspected) exposure to COVID-19 (principal)
CPT/HCPCS: U0003

== ENCOUNTER 2021-02-10 02:42 | Outpatient (RCR) | payer OTHER, SELFPAY ==
[2021-02-10] MEDS: Normal Saline Flush 10 ML SYR IVP (14:55)
[2021-02-10] MEDS: Heparin 500 UNITS/5 ML SYRINGE (14:56)
[2021-02-10 14:57] LABS: Abs Immature Grans 0.07 10^3/uL (0.0-0.06); Absolute Basophil Count 0.02 10^3/uL (0.0-0.2); Absolute Lymphocyte Count 1.26 10^3/uL (1.2-3.4); Absolute Monocyte Count 0.19 10^3/uL (0.1-0.8); Absolute Neutrophil Count 7.53 10^3/uL (1.2-6.7); Basophils % 0.2; Immature Grans % 0.8; Lymphocytes % 13.9; MCH 33.6 pg (27.0-33.0); MCHC 33.3 % (32.0-36.0); MCV 100.8 fL (80-95); MPV 8.4 fL (8.0-11.0); Monocytes % 2.1; Nucleated RBC 0 %; Platelet Count 270 10^3/uL (130-400); RBC 3.87 10^6/uL (3.93-5.22); RDW 16.2 % (11.7-14.6); RDW-SD 60.4 fL; WBC 9.07 10^3/uL (4.4-10.8)
[2021-02-10 15:10] LABS: AST 15 U/L (15-37); Albumin 3.7 g/dL (3.4-5.0); BUN 32 mg/dL (7-18); Bilirubin, Total 0.3 mg/dL (0.2-1.0); Potassium 4.4 mmol/L (3.5-5.1); Total Protein 6.7 g/dL (6.4-8.2)
[2021-02-10 15:20] LABS: ALT 33 U/L (14-59); Alkaline Phosphatase 72 U/L (46-116); Anion Gap 7.9 mmol/L (3-11); CO2 28.1 mmol/L (21.0-32.0); CREATININE 1.3 mg/dL (0.55-1.02); Calcium 9.2 mg/dL (8.5-10.1); Chloride 105 mmol/L (98-107); Estimated GFR 43.01 (mL/min/1.73m2); Glucose 133 mg/dL (74-106); LDH 280 U/L (81-234); Sodium 141 mmol/L (136-145)
== END 2021-02-23 23:59 | disposition home or self-care (01) ==
LOC: INF 02:42
PROVIDERS: PCP Nurse Practitioner Adult Health; Visit Provider Internal Medicine
DX: T86.09 Other complications of bone marrow transplant (principal); D89.810 Acute graft-versus-host disease; Z45.2 Encounter for adjustment and management of vascular access device
CPT/HCPCS: 36415; 36591; 80053; 83615; 85025

== ENCOUNTER 2021-03-12 01:29 | Outpatient (RCR) | payer OTHER, SELFPAY ==
[2021-03-12] MEDS: Heparin 500 UNITS/5 ML SYRINGE IV (10:13)
[2021-03-12] MEDS: Normal Saline Flush 10 ML SYR IVP (10:14)
[2021-03-12 10:20] LABS: Abs Immature Grans 0.04 10^3/uL (0.0-0.06); HCT 44.9 % (36.0-46.0); HGB 14.9 g/dL (11.2-15.7); MCH 34.8 pg (27.0-33.0); MCHC 33.2 % (32.0-36.0); MCV 104.9 fL (80-95); MPV 8.3 fL (8.0-11.0); Nucleated RBC 0 %; Platelet Count 303 10^3/uL (130-400); RBC 4.28 10^6/uL (3.93-5.22); RDW 16.2 % (11.7-14.6); RDW-SD 63.7 fL; WBC 10.28 10^3/uL (4.4-10.8)
[2021-03-12 10:31] LABS: ALT 29 U/L (14-59); AST 15 U/L (15-37); Albumin 3.7 g/dL (3.4-5.0); Alkaline Phosphatase 62 U/L (46-116); Anion Gap 10.2 mmol/L (3-11); BUN 25 mg/dL (7-18); Bilirubin, Total 0.3 mg/dL (0.2-1.0); CO2 27.8 mmol/L (21.0-32.0); CREATININE 1.2 mg/dL (0.55-1.02); Calcium 9.4 mg/dL (8.5-10.1); Chloride 107 mmol/L (98-107); Estimated GFR 46.99 (mL/min/1.73m2); Glucose 93 mg/dL (74-106); LDH 228 U/L (81-234); Potassium 3.9 mmol/L (3.5-5.1); Sodium 145 mmol/L (136-145); Total Protein 7.2 g/dL (6.4-8.2)
[2021-03-12 10:36] LABS: Absolute Lymphocyte Count 4.52 10^3/uL (1.2-3.4); Absolute Monocyte Count 0.82 10^3/uL (0.1-0.8); Absolute Neutrophil Count 4.93 10^3/uL (1.2-6.7); Anisocytosis 1+; Atypical Lymphocytes % 7; Diff Comment Manual Differential; Macrocytosis 2+
== END 2021-03-25 23:59 | disposition home or self-care (01) ==
LOC: INF 01:29
PROVIDERS: PCP Nurse Practitioner Adult Health; Visit Provider Internal Medicine
DX: T86.09 Other complications of bone marrow transplant (principal); D89.810 Acute graft-versus-host disease; Z45.2 Encounter for adjustment and management of vascular access device
CPT/HCPCS: 36415; 80053; 96523; 83615; 85025

== ENCOUNTER 2021-04-17 19:26 | Emergency (ER) | payer OTHER, SELFPAY ==
[2021-04-17] VITALS (27 sets, daily range): BP systolic 104–125; BP diastolic 47–83; PULSE 70–88; RESP 10–26; TEMP 36.4–36.5; O2SAT 97–100
--- NOTE | 2021-04-17 19:43 | W.ED.GENAD ---
Discharge Plan Disposition Patient Disposition: HOME Condition: Stable Discharge Details Clinical Impression: Black stools Primary Care Provider: Saritha Wylie ED Provider: Savanna Echeverria Home Meds and New Rx's Prescriptions: Continued multivitamin Tablet 1 tab PO DAILY RF: 0 magnesium oxide 400 mg magnesium tablet 400 mg PO DAILY RF: 0 ascorbate calcium (vitamin C) 500 mg tablet 500 mg PO DAILY RF: 0 prochlorperazine maleate [Compazine] 10 mg tablet 10 mg PO Q6H PRNRF: 0 ondansetron HCl 8 mg tablet 8 mg PO Q8H RF: 0 loperamide [Imodium A-D] 2 mg tablet 2 mg PO QID PRNRF: 0 prednisone 20 mg tablet 40 mg PO DAILY RF: 0 tacrolimus [Prograf] 1 mg capsule 1 mg PO BID RF: 0 sulfamethoxazole-trimethoprim 800-160 mg tablet 1 tab PO DIRECTED RF: 0 acyclovir 800 mg tablet 800 mg PO BID RF: 0 omeprazole 40 mg Capsule,Delayed Release(Dr/Ec) 40 mg PO DAILY RF: 0 cholecalciferol (vitamin D3) [Vitamin D3] 25 mcg (1,000 unit) Tablet PO DAILY RF: 0 Discharge Instructions Instructions: Melena (ED) Additional Instructions: Your stool sample on rectal exam today appeared brown and was negative for blood. Your hemoglobin today was normal at 11.9. Your hematocrit was minimally low at 36.4. Continue your Prilosec daily as directed. Call your primary care doctor on Tuesday morning for reevaluation next week. If your black-colored stools returns and persists or worsens, follow-up with surgery for further evaluation including possible upper endoscopy and colonoscopy. Return immediately to the emergency department if you develop any worsening or new concerning symptoms such as fever, persistent vomiting, worsening pain or rectal bleeding. Referrals: Elle Lopez MD [ [facility] STAFF PHYSICIAN] - Discharge Data Discharge Physician: Savanna Echeverria Medical Decision Making 51-year-old female with a history of large cell lymphoma followed by [facility] oncology on tacrolimus presents with black stools for the past 2 days. She also admits to intermittent abdominal pain for the past month. Review of [facility] records note that she had a CT chest abdomen at [facility] 3 weeks ago which noted 1. No evidence of disease recurrence. 2. Multiple stable pulmonary nodules. She states her her abdominal pain is unchanged and no worse since her CT scan 3 weeks ago. Her vitals are within normal limits. Bedside rectal exam normal to inspection and notes brown stool which is Hemoccult negative. Her abdomen is soft and nontender. As she is hemodynamically stable, negative guaiac, and unremarkable abdominal exam, do not feel indication for imaging. Will obtain screening lab, give Pepcid, Carafate and GI cocktail and reassess. Labs reviewed and unremarkable. Hemoglobin 11.9. Normal coagulation studies. Lipase normal. Patient reassessed and she remains asymptomatic. She is hemodynamically stable and feels good to go home. Discussed with patient that it does not appear that she has black tarry stools at this time and this is not consistent with GI bleeding. She is advised to follow-up with her primary care doctor and [facility] for reevaluation. Will give surgery follow-up information if the black stools return or persist for potential upper endoscopy and colonoscopy. Usual and customary return precautions given prior to discharge. Medical Records Medical records reviewed: Yes I reviewed the patient's medical records. Lab Data Lab results reviewed: Yes I reviewed the patient's lab results. Labs: Laboratory Tests Range/Units 04/17/21 04/17/21 04/17/21 20:15 20:15 20:15 WBC (4.4-10.8) 10^3/uL 7.58 RBC (3.93-5.22) 10^6/uL 3.40 L Hgb (11.2-15.7) g/dL 11.9 Hct (36.0-46.0) % 34.6 L MCV (80-95) fL 101.8 H MCH (27.0-33.0) pg 35.0 H MCHC (32.0-36.0) % 34.4 RDW (11.7-14.6) % 14.3 Plt Count (130-400) 10^3/uL 334 MPV (8.0-11.0) fL 8.4 Immature Gran % 0.1 Neutrophils % 36.3 Lymphocytes % 45.6 Monocytes % 12.0 Eosinophils % 5.1 Basophils % 0.9 Nucleated RBC % % 0 Absolute Neutrophils (1.2-6.7) 10^3/uL 2.74 Absolute Lymphocytes (1.2-3.4) 10^3/uL 3.46 H Absolute Monocytes (0.1-0.8) 10^3/uL 0.91 H Absolute Eosinophils (0.0-0.7) 10^3/uL 0.39 Absolute Basophils (0.0-0.2) 10^3/uL 0.07 PT (9.3-11.0) sec 11.0 INR (0.9-1.1) 1.1 APTT (21.0-27.5) sec 25.0 Sodium (136-145) mmol/L 142 Potassium (3.5-5.1) mmol/L 3.9 Chloride (98-107) mmol/L 105 Carbon Dioxide (21.0-32.0) mmol/L 25.5 Anion Gap (3-11) mmol/L 11.5 H BUN (7-18) mg/dL 15 Creatinine (0.55-1.02) mg/dL 1.2 H Estimated GFR/1.73 m2 (mL/min/1.73m2) 46.99 Glucose (74-106) mg/dL 83 Calcium (8.5-10.1) mg/dL 9.4 Total Bilirubin (0.2-1.0) mg/dL 0.3 AST (15-37) U/L 14 L ALT (14-59) U/L 15 Alkaline Phosphatase (46-116) U/L 75 Total Protein (6.4-8.2) g/dL 6.4 Albumin (3.4-5.0) g/dL 3.5 Lipase (73-393) U/L Range/Units 04/17/21 20:15 WBC (4.4-10.8) 10^3/uL RBC (3.93-5.22) 10^6/uL Hgb (11.2-15.7) g/dL Hct (36.0-46.0) % MCV (80-95) fL MCH (27.0-33.0) pg MCHC (32.0-36.0) % RDW (11.7-14.6) % Plt Count (130-400) 10^3/uL MPV (8.0-11.0) fL Immature Gran % Neutrophils % Lymphocytes % Monocytes % Eosinophils % Basophils % Nucleated RBC % % Absolute Neutrophils (1.2-6.7) 10^3/uL Absolute Lymphocytes (1.2-3.4) 10^3/uL Absolute Monocytes (0.1-0.8) 10^3/uL Absolute Eosinophils (0.0-0.7) 10^3/uL Absolute Basophils (0.0-0.2) 10^3/uL PT (9.3-11.0) sec INR (0.9-1.1) APTT (21.0-27.5) sec Sodium (136-145) mmol/L Potassium (3.5-5.1) mmol/L Chloride (98-107) mmol/L Carbon Dioxide (21.0-32.0) mmol/L Anion Gap (3-11) mmol/L BUN (7-18) mg/dL Creatinine (0.55-1.02) mg/dL Estimated GFR/1.73 m2 (mL/min/1.73m2) Glucose (74-106) mg/dL Calcium (8.5-10.1) mg/dL Total Bilirubin (0.2-1.0) mg/dL AST (15-37) U/L ALT (14-59) U/L Alkaline Phosphatase (46-116) U/L Total Protein (6.4-8.2) g/dL Albumin (3.4-5.0) g/dL Lipase (73-393) U/L 86 HPI General Mode of arrival: ambulatory. Date/Time Provider Initiated Documentation: 04/17/21 19:39. Limitations to Documentation: no limitations. Information obtained by: patient. 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 She states she called her oncologist at [facility] today for follow-up and discussed her black stools with them and they referred her to ER for further evaluation. She states she is unsure actually if the stools are black or dark brown. She states she restarted her multivitamin which contains iron a few days ago. She does state that she has had stomach issues for some time and that she has intermittent aching upper and lower abdominal pain for the past month. She states she has had a CT of her chest and abdomen at [facility] within the past 2 weeks as part of screening for her lymphoma. She states she does take omeprazole daily. She states she does take tacrolimus for her lymphoma but her prednisone which she was taking for GVD for several months was finished 1 month ago. She states she does take NSAIDs occasionally but not every day. She drinks alcohol rarely. Related Data Home Medications Medication Instructions Recorded Confirmed ascorbate calcium (vitamin C) 500 500 mg PO DAILY 11/01/19 05/16/20 mg tablet magnesium oxide 400 mg PO DAILY 03/26/20 05/16/20 multivitamin 1 tab PO DAILY 03/26/20 04/17/21 loperamide 2 mg tablet 2 mg PO QID PRN 05/14/20 04/17/21 ondansetron HCl 8 mg tablet 8 mg PO Q8H 05/14/20 05/16/20 prochlorperazine maleate 10 mg 10 mg PO Q6H PRN 05/14/20 04/17/21 tablet prednisone 20 mg tablet 40 mg PO DAILY tab 12/24/20 tacrolimus 1 mg capsule, 1 mg PO BID cap 12/24/20 04/17/21 immediate-release acyclovir 800 mg PO BID 04/17/21 04/17/21 cholecalciferol (vitamin D3) unit PO DAILY 04/17/21 [Vitamin D3] omeprazole 40 mg PO DAILY 04/17/21 04/17/21 sulfamethoxazole-trimethoprim 1 tab PO DIRECTED 04/17/21 04/17/21 Allergies Allergy/AdvReac Type Severity Reaction Status Date / Time brentuximab vedotin Allergy Severe sever rash Verified 04/17/21 19:33 General Stated Complaint: GI Bleed NILESH: 2 Review of Systems All systems reviewed & are unremarkable except as noted in HPI and below Constitutional Constitutional: Reports as per HPI, Denies chills and Denies fever(s) Eyes Eyes: Denies blurry vision ENT Ears, Nose, Mouth, and Throat: Denies dizziness, Denies sore throat and Denies throat swelling Cardiovascular Cardiovascular: Denies chest pain and Denies dyspnea Respiratory Respiratory: Denies cough and Denies dyspnea Gastrointestinal Gastrointestinal: Denies abdominal pain, Reports melena, Denies diarrhea and Denies vomiting Genitourinary Genitourinary: Denies hematuria and Denies dysuria Musculoskeletal Musculoskeletal: Denies back pain and Denies numbness Integumentary/Breasts Skin/Breast: Denies lesions and Denies rash Neurologic Neurologic: Denies dizziness, Denies localized weakness and Denies numbness Allergic/Immunologic Allergic/Immunologic: Denies throat swelling FOR[facility] Medical History (Updated 04/17/21 @ 21:53 by Savanna Echeverria DO) Chronic headaches History of HPV infection 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 LGSIL on Pap smear of cervix 04/2020; repeat pap 2020 Nicotine dependence Surgical History History of lymph node excision History of removal of cyst Lower Spine History of stem cell transplant x2 since 2016; 3rd pending History of tubal ligation Family History Mother Breast cancer Father Non-Hodgkin lymphoma Maternal Grandmother Melanoma Colon cancer Maternal Grandfather Prostate cancer Maternal Aunt Breast cancer Social History Smoking/Tobacco Use Status: Current every day Tobacco: How many years used: 30 Quit status: considering quitting Smoking risk assessment performed?: Yes Alcohol Intake: current Alcohol Intake frequency: a few times a month Alcohol type: beer Drug use: Current Sobriety Substance use type: marijuana Caregiver/Support person: No Household members: children Housing: house Number of Children: 1 Communication Needs: None Do you need help understanding health information?: Never current occupation: [employer] Pets and animals: Yes Pets and animals: cat(s) Sexually active: No Do you think of yourself as: straight/heterosexual Current gender identity: female What is your relationship status?: How often do you talk on the phone with friends or family?: three or more times per week How often do you get together with friends or relatives?: three or more times per week How often do you attend anglican or zoroastrianism services?: decline to answer Do you belong to any clubs or organized social groups?: no Panel score (0-1 are the most socially isolated patients): 1 Special leonel needs: No Seatbelt use: always Helmet use: No Drive intox or ride w/intox 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: No Do you feel safe at home: Yes Do you feel safe in your relationship?: Yes Exam Const General: cooperative and no acute distress HENMT Head: normal to inspection Face and sinus: normal facial exam Eyes General: appearance normal, both eyes and all related structures Pupils: PERRL EOM: EOM intact bilaterally Neck Neck: normal visual inspection and No submandibular swelling Lymphatic: no lymphadenopathy noted Chest Chest: normal inspection of the chest and no tenderness Resp Effort & Inspection: normal respiratory effort and able to speak in complete sentences Auscultation: clear to auscultation bilaterally Cardio Rate: regular rate Rhythm: regular rhythm GI Inspection: normal to inspection Palpation: soft, not firm, not rigid and nontender Auscultation: normal bowel sounds Skin General skin exam: no rashes or lesions noted Neuro General: patient alert, patient awake and patient oriented x3 Cognition: normal cognition Speech: speech normal Motor: muscle tone normal throughout Sensory Exam: no sensory deficits noted Extrem General: normal to inspection, full ROM, capillary refill normal, no calf tenderness bilaterally and no edema Psych Appearance: grossly normal Mental Status: mental status grossly normal Speech and Movement: speech and movement normal Affect: normal affect Course Vital Signs Vital signs: Vital Signs Temperature 97.7 F 04/17/21 19:30 Pulse 88 04/17/21 19:30 Respiratory Rate 16 04/17/21 19:30 Blood Pressure 122/56 L 04/17/21 19:30 Pulse Oximetry 100 04/17/21 19:30 Temperature 97.7 F 04/17/21 19:30 Temperature Source Skin 04/17/21 19:30 Pulse 88 04/17/21 19:30 Respiratory Rate 16 04/17/21 19:30 Respiratory Effort 04/17/21 19:34 Blood Pressure 122/56 L 04/17/21 19:30 Pulse Oximetry 100 04/17/21 19:30 Oxygen Delivery Method Room Air 04/17/21 19:30 Oxygen Flow Rate 0 04/17/21 19:30 Pain Level 4 04/17/21 19:30
[2021-04-17] MEDS: Normal Saline-STERILE FIELD 0.9% 10 ML SYR (20:15)
[2021-04-17 20:24] LABS: Abs Immature Grans 0.01 10^3/uL (0.0-0.06); Absolute Basophil Count 0.07 10^3/uL (0.0-0.2); Absolute Eosinophil Count 0.39 10^3/uL (0.0-0.7); Absolute Lymphocyte Count 3.46 10^3/uL (1.2-3.4); Absolute Monocyte Count 0.91 10^3/uL (0.1-0.8); Absolute Neutrophil Count 2.74 10^3/uL (1.2-6.7); Basophils % 0.9; Eosinophils % 5.1; HCT 34.6 % (36.0-46.0); HGB 11.9 g/dL (11.2-15.7); Immature Grans % 0.1; Lymphocytes % 45.6; MCHC 34.4 % (32.0-36.0); MCV 101.8 fL (80-95); MPV 8.4 fL (8.0-11.0); Neutrophils % 36.3; Nucleated RBC 0 %; Platelet Count 334 10^3/uL (130-400); RDW 14.3 % (11.7-14.6); RDW-SD 54.1 fL; WBC 7.58 10^3/uL (4.4-10.8)
[2021-04-17] MEDS: Normal Saline 500 ML IV (20:29)
[2021-04-17] MEDS: FAMOTIDINE 20 MG/50 ML BAG 200 MG IVPB (20:31)
[2021-04-17] MEDS: Sucralfate 1 GM TAB PO (20:33)
[2021-04-17 20:37] LABS: ALT 15 U/L (14-59); AST 14 U/L (15-37); Albumin 3.5 g/dL (3.4-5.0); Alkaline Phosphatase 75 U/L (46-116); Anion Gap 11.5 mmol/L (3-11); BUN 15 mg/dL (7-18); Bilirubin, Total 0.3 mg/dL (0.2-1.0); CO2 25.5 mmol/L (21.0-32.0); CREATININE 1.2 mg/dL (0.55-1.02); Calcium 9.4 mg/dL (8.5-10.1); Chloride 105 mmol/L (98-107); Estimated GFR 46.99 (mL/min/1.73m2); Glucose 83 mg/dL (74-106); Potassium 3.9 mmol/L (3.5-5.1); Sodium 142 mmol/L (136-145); Total Protein 6.4 g/dL (6.4-8.2)
[2021-04-17 20:39] LABS: INR 1.1 (0.9-1.1)
[2021-04-17 20:46] LABS: Lipase 86 U/L (73-393)
[2021-04-17] MEDS: Heparin 500 UNITS/5 ML SYRINGE (22:00)
== END 2021-04-17 22:15 | disposition home or self-care (01) ==
PROVIDERS: Emergency Provider Physician Assistant; PCP Nurse Practitioner Adult Health
DX: K92.1 Melena (principal)
CPT/HCPCS: 80053; 83690; 96361; 96365; 99284; 85025; 85610; 85730

== ENCOUNTER 2021-09-02 14:42 | Outpatient (REF) | payer OTHER, SELFPAY ==
--- NOTE | 2021-09-02 13:45 | PAPFT_PTH ---
PATIENT: Ava Mares LOC: [facility] U#:[id number] AGE/SX: 51/F ROOM: RE09/02/[address]: Sarihta Wylie APRN : 1970 BED: DIS: 09/02/2021 SPEC #: [id number] RECD: 09/02/21 18:29 STATUS: FELY REQ #: [id number] CLARKE: 09/02/21 13:[address]: Saritha Wylie DEPT: [facility] Cytology RECD BY: Xochitl Amato Tissues: 1 - CX/ENDOCX FOR PAP SMEARS Procedures: PAP THIN PREP/UVM Screening HPV DNA PROBE Comments: [id number]
== END 2021-09-02 14:43 | disposition home or self-care (01) ==
LOC: LBN 14:42
PROVIDERS: PCP Nurse Practitioner Adult Health; Visit Provider Nurse Practitioner Adult Health
DX: Z12.4 Encounter for screening for malignant neoplasm of cervix (principal); Z11.51 Encounter for screening for human papillomavirus (HPV); R87.612 Low grade squamous intraepithelial lesion on cytologic smear of cervix (LGSIL)
CPT/HCPCS: 88142; 87624

== ENCOUNTER 2021-09-04 15:18 | Outpatient (REF) | payer OTHER, SELFPAY ==
[2021-09-06 12:01] LABS: COVID-19 RT-PCR UVMMC Result Negative (Negative)
== END 2021-09-04 15:19 | disposition home or self-care (01) ==
LOC: LBN 15:18
PROVIDERS: PCP Nurse Practitioner Adult Health; Visit Provider Nurse Practitioner Adult Health
DX: Z20.822 Contact with and (suspected) exposure to COVID-19 (principal)
CPT/HCPCS: U0003

== ENCOUNTER 2021-09-22 16:03 | Outpatient (REF) | payer OTHER, SELFPAY ==
--- NOTE | 2021-09-22 15:30 | ENDO_PTH ---
PATIENT: Ava Mares LOC: [facility] U#:[id number] AGE/SX: 51/F ROOM: RE09/22/[address]: Shanice Mckeon DO : 1970 BED: DIS: 09/22/2021 SPEC #: [id number] RECD: 09/22/21 16:56 STATUS: FELY REQ #: [id number] CLARKE: 09/22/21 15:[address]: Shanice Mckeon DEPT: Surgical Specimen RECD BY: Xochitl Amato ENTERED: 09/22/21 16:58 SP TYPE: Endo OTHR DR: Saritha Wylie APRN Tissues: 1 - ENDOCERVICAL BX/CURRETTE 2 - CERVICAL BIOPSY Procedures: GROSS AND MICRO LEVEL 4 Comments: [id number]
== END 2021-09-22 16:04 | disposition home or self-care (01) ==
LOC: LBN 16:03
PROVIDERS: PCP Nurse Practitioner Adult Health; Visit Provider Obstetrics & Gynecology
DX: N87.0 Mild cervical dysplasia (principal)
CPT/HCPCS: 88305

== ENCOUNTER 2021-09-24 02:34 | Outpatient (CLI) | payer OTHER, SELFPAY ==
--- NOTE | 2021-09-24 12:54 | DI.MAMMO_ITS ---
Exam(s) MAMMO SCREENING EXAM: MAMMO SCREENING CLINICAL HISTORY: screening,z12.39. TECHNIQUE: Bilateral full field digital CC and MLO mammographic images were obtained with 3D tomosyn thesis and utilizing computer aided detection (CAD). COMPARISON: Prior mammograms dating back to 2012, the most recent being March 2020. FINDINGS: Fibroglandular tissue is again noted be moderately dense Benign-appearing microcalcification group in the right breast is noted. No new significant radiograph findings in the right breast. In the left axilla on the MLO view there is a large calcified density, not evident on prior studies. There is possibly that this may be artifact versus very heavily calcified a new finding such as lymp h node. Recommend additional imaging including exaggerated CC view. May require ultrasound There is no significant architectural distortion nor skin thickening-retraction. IMPRESSION: 1. No radiographic evidence of malignancy in the right breast. 2. Heavily calcified density in left axilla, not evident on prior studies and only partially included in the field of view here. Additional views of the left axilla and possible ultrasound recommended BI-RADS Category 0 - Assessment Incomplete: Need additional imaging evaluation Breast Density - Category C - Heterogeneously dense Breast density Category C or D implies that the patient has dense breast tissue. Dense breast tissue can make it harder to find cancer on a mammogram. Dense breast tissue is also associated with an incr eased risk of breast cancer. This information about the result of the mammogram report was provided to the patient to raise their awareness. Use this report when you speak with the patient about their risks for breast cancer, which includes their family history. At that time, you may recommend additional screening tests (Ultrasoun d or MRI) as these tests may add significant information. A negative radiographic report should not delay biopsy if a dominant or clinically suspicious mass is present. Up to ten percent of cancers are not identified on mammography. A negative report may reinforce clinical impression. Adenosis and dense breasts may obscure an underlying neoplasm. False positive reports average 6 to 10%. Patient will receive a letter notifying them of these results.
== END 2021-09-24 02:54 ==
PROVIDERS: PCP Nurse Practitioner Adult Health; Visit Provider Nurse Practitioner Adult Health
DX: Z12.31 Encounter for screening mammogram for malignant neoplasm of breast (principal); R92.8 Other abnormal and inconclusive findings on diagnostic imaging of breast
CPT/HCPCS: 77063; 77067

== ENCOUNTER 2021-10-05 02:15 | Outpatient (RCR) | payer OTHER, SELFPAY ==
[2021-10-05 10:29] LABS: Abs Immature Grans 0.02 10^3/uL (0.0-0.06); Absolute Basophil Count 0.12 10^3/uL (0.0-0.2); Absolute Lymphocyte Count 3.59 10^3/uL (1.2-3.4); Absolute Monocyte Count 0.95 10^3/uL (0.1-0.8); Basophils % 1.3; Eosinophils % 15.8; HCT 36.7 % (36.0-46.0); HGB 12.1 g/dL (11.2-15.7); Immature Grans % 0.2; Lymphocytes % 37.9; MCH 32.4 pg (27.0-33.0); MCV 98.1 fL (80-95); MPV 8.2 fL (8.0-11.0); Neutrophils % 34.8; Nucleated RBC 0 %; Platelet Count 434 10^3/uL (130-400); RBC 3.74 10^6/uL (3.93-5.22); RDW 15.3 % (11.7-14.6); RDW-SD 55.3 fL; WBC 9.48 10^3/uL (4.4-10.8)
[2021-10-05 10:40] LABS: ALT 24 U/L (14-59); AST 23 U/L (15-37); Albumin 3.1 g/dL (3.4-5.0); Alkaline Phosphatase 87 U/L (46-116); BUN 18 mg/dL (7-18); Bilirubin, Total 0.2 mg/dL (0.2-1.0); CREATININE 0.8 mg/dL (0.55-1.02); Calcium 9.1 mg/dL (8.5-10.1); Chloride 106 mmol/L (98-107); Glucose 111 mg/dL (74-106); LDH 163 U/L (81-234); Potassium 4.2 mmol/L (3.5-5.1); Sodium 140 mmol/L (136-145); Total Protein 7.2 g/dL (6.4-8.2)
[2021-10-05] MEDS: Heparin 500 UNITS/5 ML SYRINGE IV (10:46)
[2021-10-05] MEDS: Normal Saline Flush 10 ML SYR IVP (10:47)
== END 2021-10-26 23:59 | disposition home or self-care (01) ==
LOC: INF 02:15
PROVIDERS: PCP Nurse Practitioner Adult Health; Visit Provider Internal Medicine
DX: T86.09 Other complications of bone marrow transplant (principal); D89.810 Acute graft-versus-host disease; Z45.2 Encounter for adjustment and management of vascular access device
CPT/HCPCS: 36591; 80053; 83615; 85025

== ENCOUNTER 2021-10-08 03:03 | Outpatient (CLI) | payer OTHER, SELFPAY | END 2021-10-08 03:23 | PROVIDERS: PCP Nurse Practitioner Adult Health; Visit Provider Nurse Practitioner Adult Health ==

== ENCOUNTER 2022-09-24 15:43 | Outpatient (REF) | payer MEDICARE, SELFPAY ==
--- NOTE | 2022-09-24 14:00 | PAPFT_PTH ---
PATIENT: Ava Mares LOC: [facility] U#:[id number] AGE/SX: 52/F ROOM: RE09/24/[address]: Saritha Wylie APRN : 1970 BED: DIS: 09/24/2022 SPEC #: [id number] RECD: 09/28/22 12:50 STATUS: FELY REQ #: [id number] CLARKE: 09/24/22 14:[address]: Saritha Wylie DEPT: [facility] Cytology RECD BY: Xochitl Amato Tissues: 1 - CX/ENDOCX FOR PAP SMEARS Procedures: PAP THIN PREP/UVM Screening HPV DNA PROBE Comments: [id number]
== END 2022-09-24 15:44 | disposition home or self-care (01) ==
LOC: LBN 15:43
PROVIDERS: PCP Nurse Practitioner Adult Health; Visit Provider Nurse Practitioner Adult Health
DX: Z12.4 Encounter for screening for malignant neoplasm of cervix (principal); Z11.51 Encounter for screening for human papillomavirus (HPV); R87.610 Atypical squamous cells of undetermined significance on cytologic smear of cervix (ASC-US); Z01.419 Encounter for gynecological examination (general) (routine) without abnormal findings
CPT/HCPCS: 88142; 87624

== ENCOUNTER 2022-10-18 01:48 | Outpatient (CLI) | payer MEDICARE, SELFPAY ==
--- NOTE | 2022-10-18 07:30 | DI.MAMMO_ITS ---
Exam(s) MAMMO SCREENING EXAM: MAMMO SCREENING CLINICAL HISTORY: screening,z12.39 TECHNIQUE: Mammograms were interpreted according to the usual protocol including computer analysis w [employer] CAD system, tomosynthesis and C-view imaging. COMPARISON: 2012 through 2020 FINDINGS: The breasts are composed of heterogeneously dense fibroglandular densities, Breast Density category C . No suspicious masses or suspicious microcalcifications are seen. No skin thickening or abnormal axillary lymph nodes are seen. There has been no significant change from prior exams. IMPRESSION: BI-RADS Category 1, Negative mammogram. Yearly screening mammography is recommended. Breast Density Category C, heterogeneously Dense. The mammogram demonstrates the patient's breast tissue is dense. Dense breast tissue is very common a nd is not abnormal but dense breast tissue can make it harder to find cancer on a mammogram. Also, de nse breast tissue may increase breast cancer risk. This information about the result of the mammogram report was provided to the patient to raise their awareness. Use this report when you speak with the patient about their risks for breast cancer, which includes their family history. At that time, you may recommend additional screening tests (Ultrasound or MRI) as they might be useful based on their r isk. A negative radiographic report should not delay biopsy if a dominant or clinically suspicious mass is present. Up to ten percent of cancers are not identified on mammography. A negative report may reinforce clinical impression. Adenosis and dense breasts may obscure an underlying neoplasm. False positive reports average 6 to 10%.
== END 2022-10-18 02:08 ==
LOC: DI 01:48
PROVIDERS: PCP Nurse Practitioner Adult Health; Visit Provider Nurse Practitioner Adult Health
DX: Z12.31 Encounter for screening mammogram for malignant neoplasm of breast (principal); R92.8 Other abnormal and inconclusive findings on diagnostic imaging of breast
CPT/HCPCS: 77063; 77067

== ENCOUNTER 2022-10-25 02:20 | Outpatient (CLI) | payer MEDICARE, SELFPAY ==
--- NOTE | 2022-10-25 08:00 | DI.US_ITS ---
Exam(s) US PELVIS TRANSVAGINAL EXAM: US PELVIS TRANSVAGINAL CLINICAL HISTORY: pelvic mass,ASCUS OF CERVIX,R19.00,R87.610. TECHNIQUE: Transabdominal and transvaginal pelvic ultrasound was performed using standard protocol. COMPARISON: No exams were available for comparison FINDINGS: KIDNEYS: Limited renal evaluation is unremarkable. UTERUS: Position: Anteverted. Size: 5.6 long by 2.4 AP by 2.7 transverse cm Endometrium: 0.3 cm. Normal for patient's menstrual status. Myometrium: Unremarkable. Cervix: Unremarkable. OVARIES: The ovaries are only identified transabdominally. Right: 1.8 x 1.6 x 1 cm Cyst or mass: No suspicious cystic or solid masses. Left: 1.9 x 0.5 x 1.8 cm Cyst or mass: No suspicious cystic or solid masses. CUL-DE-SAC: Free fluid: None. Other: None. IMPRESSION: 1. Limited evaluation of the kidneys is unremarkable. 2. Normal-appearing uterus with endometrial stripe within normal limits. 3. Unremarkable bilateral ovaries. The ovaries were only visualized transabdominally. DATA REPOSITORY:
== END 2022-10-25 02:40 ==
LOC: DI 02:20
PROVIDERS: PCP Nurse Practitioner Adult Health; Visit Provider Obstetrics & Gynecology
DX: R19.09 Other intra-abdominal and pelvic swelling, mass and lump (principal); R87.610 Atypical squamous cells of undetermined significance on cytologic smear of cervix (ASC-US)
CPT/HCPCS: 76830; 76856

== ENCOUNTER → 2022-11-11 13:01 | Outpatient (BNVA) | payer MEDICARE, SELFPAY | PROVIDERS: PCP Nurse Practitioner Adult Health; Referring Provider Nurse Practitioner Adult Health; Visit Provider Physical Therapy Assistant | DX: L98.8 Other specified disorders of the skin and subcutaneous tissue (principal) | CPT/HCPCS: 11104 ==

== ENCOUNTER 2022-11-11 13:18 | Outpatient (REF) | payer MEDICARE, SELFPAY ==
--- NOTE | 2022-11-11 13:30 | SKI_PTH ---
PATIENT: Ava Mares LOC: [facility] U#:[id number] AGE/SX: 52/F ROOM: RE11/11/[address]: Shanel Rankin : 1970 BED: DIS: 11/11/2022 SPEC #: [id number] RECD: 11/11/22 17:56 STATUS: FELY REAnahi #: [id number] CLARKE: 11/11/22 13:[address]: Shanel Rankin DEPT: Surgical Specimen RECD BY: Xochitl Amato ENTERED: 11/11/22 17:57 SP TYPE: SUSI RYAN DR: Saritha Wylie APRN Tissues: 1 - SKIN BIOPSY(SHAVE/PUNCH) 2 - SKIN BIOPSY(SHAVE/PUNCH) Procedures: SKIN LEVEL 4 Comments: [id number]
== END 2022-11-11 13:19 | disposition home or self-care (01) ==
LOC: LBN 13:18
PROVIDERS: PCP Nurse Practitioner Adult Health; Visit Provider Surgery
DX: L94.0 Localized scleroderma [morphea] (principal)
CPT/HCPCS: 88305

== ENCOUNTER → 2024-04-16 01:11 | Outpatient (CLI) | payer MEDICARE, SELFPAY ==
--- NOTE | 2024-04-16 07:43 | DI.MAMMO_ITS ---
Exam(s) MAMMO SCREENING EXAM: MAMMO SCREENING CLINICAL HISTORY: screening,z12.39,family h/o breast ca TECHNIQUE: Bilateral full field digital CC and MLO mammographic images were obtained with 3D tomosyn thesis and utilizing computer aided detection (CAD). COMPARISON: Available for comparison. FINDINGS: Masses/Architectural Distortion: None seen. Microcalcifications: No suspicious pleomorphic-type are seen. Skin Thickening/Nipple Retraction: None. IMPRESSION: 1. No significant interval change with no specific features of malignancy noted. 2. Unless there is more urgent need, screening mammography is recommended, as per [employer] guidelines. BI-RADS Category 1 - Negative Breast Density - Category B - Scattered areas of fibroglandular density Breast density category C or D implies that the patient has dense breast tissue. Dense breast tissue is very common and is not abnormal but dense breast tissue can make it harder to find cancer on a ma mmogram. Also, dense breast tissue may increase their breast cancer risk. This information about the result of the mammogram report was provided to the patient to raise their awareness. Use this report when you speak with the patient about their risks for breast cancer, which includes their family hist ory. At that time, you may recommend for more screening tests (Ultrasound or MRI) as they might be us eful based on their risk. A negative radiographic report should not delay biopsy if a dominant or clinically suspicious mass is present. Up to ten percent of cancers are not identified on mammography. A negative report may reinforce clinical impression. Adenosis and dense breasts may obscure an underlying neoplasm. False positive reports average 6 to 10%. Patient will receive a letter notifying them of these results.
== END ==
PROVIDERS: PCP Nurse Practitioner Adult Health; Visit Provider Nurse Practitioner Adult Health
DX: Z12.39 Encounter for other screening for malignant neoplasm of breast (principal); Z12.31 Encounter for screening mammogram for malignant neoplasm of breast
CPT/HCPCS: 77063; 77067

== ENCOUNTER 2024-06-27 15:27 | Outpatient (REF) | payer MEDICARE, SELFPAY ==
--- NOTE | 2024-06-27 13:45 | PAPFT_PTH ---
PATIENT: Ava Mares LOC: [facility] U#:[id number] AGE/SX: 54/F ROOM: RE06/27/[address]: Saritha Wylie APRN : 1970 BED: DIS: 06/27/2024 SPEC #: [id number] RECD: 06/28/24 13:09 STATUS: FELY REQ #: [id number] CLARKE: 06/27/24 13:[address]: Saritha Wylie DEPT: [facility] Cytology RECD BY: Xochitl Amato Tissues: 1 - CX/ENDOCX FOR PAP SMEARS Procedures: PAP THIN PREP/UVM Screening HPV DNA PROBE Comments: [id number] (HPV 16 & 18/45)
== END 2024-06-27 15:28 | disposition home or self-care (01) ==
LOC: LBN 15:27
PROVIDERS: PCP Nurse Practitioner Adult Health; Visit Provider Nurse Practitioner Adult Health
DX: Z12.4 Encounter for screening for malignant neoplasm of cervix (principal); Z11.51 Encounter for screening for human papillomavirus (HPV)
CPT/HCPCS: 88142; 87624